=== PATIENT | female | born 1925 | race Caucasian/White ===

== ENCOUNTER 2016-09-14 13:00 | Inpatient (IN) | payer MEDICARE, OTHER ==
[~2016-09-14] VITALS: Ht 165.1 cm; Wt 66.3 kg
[2016-09-14] VITALS (7 sets, daily range): BP systolic 112–151; BP diastolic 51–66; PULSE 60–150; RESP 11–18; O2SAT 92–99
[~2016-09-14 13:00] MED LIST: Aspirin PO; Hydrocodone/Acetaminophen PO; METO50TA7 PO; MULT-56 PO
--- NOTE | 2016-09-14 13:09 | ED.REPORT ---
HPI-Trauma Minor / Fall Date of Service Sep 14, 2016 ED Provider: Dr. Ayaz Luke Patient is a 89-year-old female with a history of HTN and arthritis who reports to the ED via EMS after a ground level fall on her hip. Via EMS, the patient tripped over a loose rug which caused her to fall. She is responsive and answers questions. Patient says she, "just feels completely lousy." She was not experiencing any extraneous symptoms prior to her fall. Nursing Notes Stated Complaint: GROUND LEVEL FALL Nursing Notes Reviewed: Yes Allergies: Coded Allergies: No Known Allergies (Unverified Allergy, Unknown, 10/16/14) Scheduled ([Aspirin]) 325 MG TABLET 325 MG PO DAILY Metoprolol Succinate ER (Toprol XL) 50 Mg Tablet.er 50 MG PO DAILY Multivitamin (Daily Vitamin) 1 Each Tablet 1 EACH PO DAILY Scheduled PRN ([Hydrocodone/Acetaminophen]) 1 TAB TABLET 1-2 TAB PO Q4H PRN PRN For Pain General Time Seen by MD: 13:09 Chief Complaint Fall Hx Obtained From: Patient, EMS Arrived By: Ambulance Onset Occurred: Just prior to arrival Symptom Duration: Since onset Caused by: Fall on ground Context: Occurred at: Home injury Location: Hip right Severity: Current: Moderate Severity: Maximum: Moderate Similar Sx Previous: No Past Medical History Past Medical History 3 yrs ago tripped and broke arm Arthritis Reports: Hypertension Past Surgical History Reports: Cholecystectomy Smoking History Never Smoker Social History Alcohol Use: 1-3 per week Review of Systems Musculoskeletal: Reports: Joint pain (hip pain) Complete sys rev & neg: except as marked. Physical Exam Initial Vital Signs Vital Signs (First) Date Time Temp Pulse Resp B/P Pulse Ox O2 Delivery O2 Flow Rate FiO2 09/14/16 13:14 36.5 79 15 127/51 92 Room Air Initial VS: Reviewed ENT: Mucous membranes moist, Conjunctiva normal, No scleral icterus Respiratory: Breath sounds normal, Clear to auscultation, No respiratory distress Cardiovascular: Regular rate & rhythm, Heart sounds normal, Intact distal pulses Abdomen / GI: Soft, Non-tender, No guarding, No rebound, No distention Skin: Warm, Dry, No cyanosis Neurologic: Alert, Oriented, Nonfocal Psychiatric: Mood/affect normal, Behavior normal, Normal thought content General/Constitutional: Awake, Alert, Well appearing, Cooperative, Not toxic appearing Neck: Atraumatic, Supple, No swelling, Non-tender Head / Eyes: Atraumatic, Normocephalic, PERRL, EOMI no signs of head injury Right Hip: Positive: Tenderness present... (Moderate) right hip tenderness to palpation Neurologic: Oriented X3, Speech NL, No motor deficits, No sensory deficits Interpretation & Diagnostics Lab Results Interpretation Result Diagram: 09/14/16 1455 Test 09/14/16 14:55 White Blood Count 17.5th/mm3 (3.8-10.1) Red Blood Count 4.70mil/mm3 (3.90-5.20) Hemoglobin 14.7g/dL (12.0-15.6) Hematocrit 43.8% (35.0-46.0) Mean Corpuscular Volume 93.2fL (81-100) Mean Corpuscular Hemoglobin 31.3pg (27.0-35.0) Mean Corpuscular Hemoglobin Concent 33.6% (32.0-37.0) Red Cell Distribution Width 12.9% (12.3-15.4) Platelet Count 225bil/L (150-400) Neutrophils (%) (Auto) 87.1% (40-74) Lymphocytes (%) (Auto) 7.1% (14-46) Monocytes (%) (Auto) 5.3% (4-12) Eosinophils (%) (Auto) 0.1% (0-5) Basophils (%) (Auto) 0.2% (0-3) Hold Matthew Top Tube Received (Received) ECG Interpretation Time: 13:28 Interpreted by: ED physician Rhythm / Conduction: Atrial fibrillation Time: 15:10 Interpreted by: ED physician Rhythm / Conduction: Atrial fibrillation (with RVR) X-Ray Chest Interpretation Chest Xray Interpretation: IMPRESSION: Mild increased pulmonary vascularity secondary to edema. Dictated by: Conchis Julian M.D. on 09/14/2016 at 14:41 Approved by: Conchis Julian M.D. on 09/14/2016 at 14:41 View: Portable Interpretation / Wet Read by: Interpret - Radiologist X-Ray Interpretation Xray Interpretation: HIP PELVIS X-RAY IMPRESSION: Right intertrochanteric fracture with fracture extension to the femoral shaft. Dictated by: Conchis Julian M.D. on 09/14/2016 at 14:45 Approved by: Conchis Julian M.D. on 09/14/2016 at 14:45 X-Ray Ordered: Hip right Interpretation / Wet Read by: Interpret - Radiologist CT Head Interpretation IMPRESSION: No acute intracranial abnormality. Dictated by: Kary Portillo M.D. on 09/14/2016 at 14:58 Approved by: Kary Portillo M.D. on 09/14/2016 at 14:58 Study: Head CT no contrast Interpretation / Wet Read by: Interpret - Radiologist Re-Eval/Medical Decision Med Decision/Clinical Course Right hip fracture, additionally patient's sons relative for A. fib, head CT negative. I am currently awaiting lab evaluation and will plan on admitting the patient for surgery via orthopedics. Re-Evaluation/Progress : Time of Eval: 14:38 Re-Evaluation/Progress Note: Pt rechecked and informed of diagnosis of fractured right hip. Informed pt of need for admission. Pt understands and agrees with plan for admission. All questions addressed. Counseled Regarding: Diagnosis, Lab results, Need for admission Discharge & Departure Shift Change Sign-Out Patient Care Transferred: Yes Discussed Complaint(s): Yes Laboratory Evaluation: Ordered, not yet done Imaging Studies: Imaging discussed Impression: Primary Impression: Hip fracture Disposition: ADMITTED TO HOSPITAL Discharge Condition All VS Reviewed: Yes Condition: Stable Referrals: Jaimie Martines MD (PCP) Care Transferred to: Dr. Yoan Musa Care Transferred at: 15:07 Joe Attestation Portion of this note were transcribed by Eloy Wright. I, Dr. Luke, personally performed the history, physical exam, and medical decision-making: I reviewed and confirmed the accuracy for the information in the transcribed note. Signed by: joe Whelan, 09/14/16 [id number] copies to: Jaimie Martines MD, Timothy S DO Sep 14, 2016 13:09 ELOY WRIGHT Sep 14, 2016 13:22
[2016-09-14] MEDS ORDERED: HYDROmorphone 0.5 mg/0.5 mL iSecure Syringe IVPUSH PRN (13:15)
[2016-09-14] MEDS ORDERED: Ondansetron 2 mg/mL 2 mL Inj IV PRN (13:15)
--- NOTE | 2016-09-14 14:43 | DRSVH ---
PROCEDURE: X-RAY CHEST ONE VIEW, PORTABLE ([id number]) INDICATIONS: fall, right hip pain TECHNIQUE: One view of the chest was acquired. COMPARISON: [facility], CR, XR CHEST 2VW, 06/26/2015, 13:46. FINDINGS: Surgical changes and devices: Pacemaker and cholecystectomy clips. Lungs and pleura: No pleural effusions or pneumothorax. Mild increased pulmonary vascularity. Mediastinum: Mediastinal contours appear normal. Heart size is normal. Bones and chest wall: No suspicious bony lesions. Overlying soft tissues appear unremarkable. IMPRESSION: Mild increased pulmonary vascularity secondary to edema. Dictated by: Conchis Julian M.D. on 09/14/2016 at 14:41 Approved by: Conchis Julian M.D. on 09/14/2016 at 14:41
--- NOTE | 2016-09-14 14:46 | DRSVH ---
PROCEDURE: X-RAY PELVIS W/LAT HIP (RT) ([id number]) INDICATIONS: fall, right hip pain TECHNIQUE: AP pelvis with lateral view(s) of the right hip(s). COMPARISON: None. FINDINGS: Bones: Right intertrochanteric fracture with slight impaction. There is also appearance of fracture extension into the proximal femoral shaft. Pelvic ring appears intact. No suspicious bony lesions. Soft tissues: The visualized bowel gas pattern is normal. No suspicious soft tissue calcifications. IMPRESSION: Right intertrochanteric fracture with fracture extension to the femoral shaft. Dictated by: Conchis Julian M.D. on 09/14/2016 at 14:45 Approved by: Conchis Julian M.D. on 09/14/2016 at 14:45
--- NOTE | 2016-09-14 15:00 | DRSVH ---
PROCEDURE: CT BRAIN WITHOUT CONTRAST ([id number]) INDICATIONS: fall on xarelto TECHNIQUE: Noncontrast 4.5 mm thick angled axial sections acquired from the foramen magnum to the vertex, with c oronal reformats. COMPARISON: None. FINDINGS: Image quality: Excellent. CSF spaces: Basal cisterns are patent. No extra-axial fluid collections. The ventricles are symmet leo in size and shape. Brain: No intracranial bleeds or masses. There is cerebral volume loss for age, with resultant vent ricular and sulcal prominence. There are periventricular and deep white matter chronic small vessel ischemic changes. There is intracranial internal carotid artery atherosclerosis. Skull and face: Calvarium and visualized facial bones appear intact, without suspicious lesions. Sinuses: Visualized sinuses and mastoids are clear. IMPRESSION: No acute intracranial abnormality. Dictated by: Kary Portillo M.D. on 09/14/2016 at 14:58 Approved by: Kary Portillo M.D. on 09/14/2016 at 14:58
[2016-09-14] MEDS ORDERED: MeTOProlol 1 mg/mL 5 mL Inj IVPUSH SCH (15:10)
[2016-09-14] MEDS ORDERED: 0.9% Sodium Chloride 500 ML IV ONE (15:10)
[2016-09-14 15:17] LABS: BASOPHILS % (AUTO) 0.2 % (0-3); EOSINOPHILS % (AUTO) 0.1 % (0-5); MONOCYTES % (AUTO) 5.3 % (4-12); Mean Corpuscular Hemoglobin 31.3 pg (27.0-35.0); Mean Corpuscular Volume 93.2 fL (81-100); NEUTROPHILS % (AUTO) 87.1 % (40-74); Platelet Count 225 bil/L (150-400)
[2016-09-14 15:30] LABS: Magnesium 1.9 mg/dL (1.6-2.6)
[2016-09-14] MEDS ORDERED: FLUN25SP NASAL (16:03)
[2016-09-14] MEDS ORDERED: RIVA20TA PO (16:03)
[2016-09-14] MEDS ORDERED: METO200T32 PO (16:03)
[2016-09-14 16:22] LABS: INR 1.04 ratio
[2016-09-14] MEDS ORDERED: Alum-Mag Hydrox-Simeth 30 mL Suspension PO PRN (16:25)
[2016-09-14] MEDS ORDERED: Ondansetron 2 mg/mL 2 mL Inj IVPUSH PRN (16:25)
[2016-09-14] MEDS ORDERED: Fluticasone 0.05% 15 Spray/2 Gm 16 Gm Nasal Spray NASAL PRN (16:40)
--- NOTE | 2016-09-14 16:44 | PCM.HPMED ---
Subjective Date of Service Sep 14, 2016 Primary Provider: Admitting Physician: Primary Care Physician: Jaimie Martines MD Attending Physician: Chief Complaint: fell and broke hip HISTORY was OBTAINED FROM PATIENT-poor historian / [facility] NOTES History of present illness 89-year-old female, BIB EMS,atrial fibrillation- Xarelto, non-compliance, EtOH, recurrent fall, presented after ground level fall and noted to have right hip fracture. She was responsive verbally to ER doc but in the gao she was slow to respond/difficult to redirect, proceeded to have projectile vomiting of old food and bile after RN attempting administering pill, then became more alert, able to keep attention, circumferential and had forgotten that she had a hip fracture or the fall. Per EMS, she tripped over a rug. She previously fell and broke her arm. She indicates no pain of legs.She indicated to ER staff that she felt "lousy" no change in diet. EtOH is noted to be less per ER note than prior notes. She indicates that she does not take much medications. In the ER, patient briefly had RVR 150, self resolved prior to administration of metoprolol. In the gao, banana bag was started, but w/ new crackles, it was stopped, thiamine IV instead, and lasix 30 mg total administered w.normal electrolyes Review of Systems - FAMILY HX - prior to vomitting she was poorly responding to questions, redirectable by yelling only. Medications xarelto Metoprolol Succinate ER (Toprol XL) 50 Mg Tablet.er 50 MG PO DAILY ([Hydrocodone/Acetaminophen]) 1 TAB TABLET 1-2 TAB PO Q4H PRN PRN For Pain SOCIAL HX EtOH nightly, never smoker PAST MEDICAL HISTORY: 1. Occasional palpitations 2. GERD. 3. Transient episode of vertigo with negative workup and no sequelae. tripped and broke arm 1. LORETA/BSO in stages. 2. Salas in the left lower extremity following fracture. 3. Appendectomy. 4. Cholecystectomy. 5. Some neck surgery that was carried out with a very brief outpatient procedure. Neither the patient nor her family members can recall anything further about this. Hypertension Osteoarthritis Cataracts GERD Cholecystectomy Allergies Coded Allergies: No Known Allergies (Unverified Allergy, Unknown, 10/16/14) PMH Social History Hx Alcohol Use: Yes (one drink a night) Hx Substance Use: No Hx Tobacco Use: No Smoking Status: Never Smoker Exam Vital Signs Vital Sign - Last Date Time Temp Pulse Resp B/P Pulse Ox O2 Delivery O2 Flow Rate FiO2 09/14/16 15:00 150 11 112/58 96 Room Air 09/14/16 13:14 36.5 Lab and Diagnostics Labs Exam on admission poor to verbally respond, redirectable with yelling, follows commands, no dysarthria, NAD A and O x 3 mood affect WNL NC/AT no icterus no injected eyes EOMI PERRL /no pharyngeal lesions/ no oral lesions / hearing intact Supple neck crackles bilateral equal chest rise / no accessory muscle use / speaks in full sentences / no rrw irreg irreg [id number], S2, S3 / no mrg / 2+ radial pulses Soft nt nd + BS no hepatosplenomegaly No edema no cyanosis no ecchymosis of lower extremities No rash / no jaundice GARCIA parsons clear urine EKG 81 afib, no ST Changes echo 2014 Interpretation Summary The left ventricle is normal in size. The ejection fraction is estimated to be 60-65%. The right ventricle is normal in size and function. The left atrium is mildly dilated. Right atrial size is normal. There is mild mitral regurgitation. Procedure: A two-dimensional transthoracic echocardiogram with color flow and Doppler was performed. The study quality was technically adequate. There is no prior echocardiogram noted for this patient. The patient was in normal sinus rhythm during the exam. Left Ventricle: The left ventricle is normal in size. Proximal septal thickening is noted. Echo findings are not consistent with left ventricular outflow obstruction. INR 1.01 PROCEDURE: CT BRAIN WITHOUT CONTRAST ([id number]) INDICATIONS: fall on xarelto TECHNIQUE: Noncontrast 4.5 mm thick angled axial sections acquired from the foramen magnum to the vertex, with coronal reformats. COMPARISON: None. FINDINGS: Image quality: Excellent. CSF spaces: Basal cisterns are patent. No extra-axial fluid collections. The ventricles are symmetric in size and shape. Brain: No intracranial bleeds or masses. There is cerebral volume loss for age , with resultant ventricular and sulcal prominence. There are periventricular and deep white matter chronic small vessel ischemic changes. There is intracranial internal carotid artery atherosclerosis. Skull and face: Calvarium and visualized facial bones appear intact, without suspicious lesions. Sinuses: Visualized sinuses and mastoids are clear. IMPRESSION: No acute intracranial abnormality. CXRPROCEDURE: X-RAY CHEST ONE VIEW, PORTABLE ([id number]) INDICATIONS: fall, right hip pain TECHNIQUE: One view of the chest was acquired. COMPARISON: [facility], CR, XR CHEST 2VW, 06/26/2015, 13:46. FINDINGS: Surgical changes and devices: Pacemaker and cholecystectomy clips. Lungs and pleura: No pleural effusions or pneumothorax. Mild increased pulmonary vascularity. Mediastinum: Mediastinal contours appear normal. Heart size is normal. Bones and chest wall: No suspicious bony lesions. Overlying soft tissues appear unremarkable. IMPRESSION: Mild increased pulmonary vascularity secondary to edema. PROCEDURE: X-RAY PELVIS W/LAT HIP (RT) ([id number]) INDICATIONS: fall, right hip pain TECHNIQUE: AP pelvis with lateral view(s) of the right hip(s). COMPARISON: None. FINDINGS: Bones: Right intertrochanteric fracture with slight impaction. There is also appearance of fracture extension into the proximal femoral shaft. Pelvic ring appears intact. No suspicious bony lesions. Soft tissues: The visualized bowel gas pattern is normal. No suspicious soft tissue calcifications. IMPRESSION: Right intertrochanteric fracture with fracture extension to the femoral shaft. Result Diagram: 09/14/16145409/14/161454 Assessment & Plan Active issues and reason for admission hip fracture from recurrent GLF, AMS in the gao but not in ER, negative repeat head CT, likely delirium and EtOH component, inaccurate/poor historian Hip fracture --Dr Bain afib transient RVR in ER --caution w/ fluid overload, lasix now, monitor electrolytes --echo pending questionable xaralto use --patient indicates she does not take "much" pills --ffp for am ordered intraop Echo repeat due to fluid overload, dc banana bag Delirium resolving, known EtOH use --tsh / NH3 pending / continue thiamine Gastroenteritis - vomiting w/ dysphagia --supportive care, swallow evaluation, tolerating crushed pills in apple sauce --PPI Chronic issues known prior to admission, present on admission afib monitor electrolyes and i/o EtOh CIWA Diet dysphagia DVT prophylaxis lovenox Code full Disposition inpt Assessment and plan were discussed with patient Александр Redding MD Sep 14, 2016 16:44 Lab and Diagnostics Result Diagram: 09/14/16 0811 09/14/16 1455 Алескандр Redding MD Sep 14, 2016 16:44 Disposition OBS status Greater than 50% of this visit, with total time of 51 71 minutes, was spent on counselling and coordinating care. Assessment and plan were discussed with patient family. Allergies Coded Allergies: No Known Allergies (Unverified Allergy, Unknown, 10/16/14) PMH Social History Hx Alcohol Use: Yes (one drink a night) Hx Substance Use: No Hx Tobacco Use: No Smoking Status: Never Smoker Exam Vital Signs Vital Sign - Last Date Time Temp Pulse Resp B/P Pulse Ox O2 Delivery O2 Flow Rate FiO2 09/14/16 15:00 150 11 112/58 96 Room Air 09/14/16 13:14 36.5 Lab and Diagnostics Result Diagram: 09/14/16 1455 09/14/16 1455 Александр Redding MD Sep 14, 2016 16:44
[2016-09-14 16:49] LABS: APPEARANCE,URINE CLEAR (CLEAR,HAZY); COLOR,URINE YELLOW (YELLOW); OCCULT BLOOD,URINE TRACE (NEGATIVE); UROBILINOGEN,URINE NORMAL (NORMAL)
[2016-09-14] MEDS ORDERED: Glucose 40% Oral Gel 15 Gm Tube PO PRN (16:50)
[2016-09-14] MEDS ORDERED: Thiamine Inj 100 MG, Folic Acid Inj 1 MG, Magnesium Sulfate 50% Inj 2 GM, Multivitamins... IV ONE ×5 (16:50)
[2016-09-14] MEDS ORDERED: MeTOProlol XL 50 mg ER24 Tablet PO SCH (17:00)
--- NOTE | 2016-09-14 17:29 | DRSVH ---
PROCEDURE: X-RAY RIGHT FEMUR, TWO VIEWS ([id number]) INDICATIONS: hip fracture TECHNIQUE: 2 views of the femur were acquired. COMPARISON: [facility], CR, XR PELVIS W LATERAL HIP RT, 09/14/2016, 14:11. FINDINGS: Bones: Right intertrochanteric hip fracture with extension to the proximal femur is again noted witho ut significant change compared to prior exam. Visualized portions of the remainder of the femur are u nremarkable. Partially visualized tibial fixation renate is noted. Soft tissues: No suspicious soft tissue calcifications or masses. IMPRESSION: Right hip fracture as above without interval change. No other areas of fracture identifie d. Dictated by: Conchis Julian M.D. on 09/14/2016 at 17:28 Approved by: Conchis Julian M.D. on 09/14/2016 at 17:28
[2016-09-14] MEDS: Insulin LISPRO 300 Unit/3 mL Inj SUBQ SCH ×2 (17:30→22:00)
--- NOTE | 2016-09-14 19:17 | NUR ---
Admit note- Received patient via stretcher to 1017 accompanied by son. Patient denies pain, except when moved onto bed. Oriented to room, call light,tele,etc.
[2016-09-14] MEDS ORDERED: Furosemide 10 mg/mL 2 mL Inj IVPUSH ONE (21:30)
[2016-09-14] MEDS ORDERED: MetoCLOpramide 5 mg/mL 2 mL Inj IVPUSH PRN (22:05)
--- NOTE | 2016-09-14 22:57 | NUR ---
Nausea/ Vomiting Pt. had an episode of vomiting. paged. New order placed for reglan IV, as zofran IV was ineffective. Reglan IV was effective for nausea. Care continues.
[2016-09-14 23:13] LABS: TROPONIN T 0.01 ug/L (0.0-0.011)
--- NOTE | 2016-09-14 23:19 | NUR ---
Off floor to CT Pt. transported off floor at [address] scan[address] Pt. transported by [facility] floor staff. [facility] floor staff stayed with pt. during entire procedure, and transported pt. back into room. Pt. was on telemetry during transport. Pt. back on floor at 2317. Will continue to monitor.
--- NOTE | 2016-09-14 23:22 | CONS ---
[address] [address] CONSULTATION REPORT PATIENT: ELVIRA ALVAREZ : 1925 MR#: [id number] ADMIT: 09/14/2016 JOB ID: [id number] DATE OF SERVICE: 09/14/2016 ORTHOPEDIC CONSULTATION - [id number] CHIEF COMPLAINT: This is an 89-year-old female who tripped on a rug today at home, sustaining a displaced right intertrochanteric femoral fracture. HISTORY: According to the emergency department note, patient was responsive when she came to the emergency department. She has history of hypertension and atrial fibrillation. She evidently is also on Xarelto. We are not sure if she does take this on a regular basis. A CT scan was performed of the head with no acute infiltrates. Upon checking the patient tonight, she seems to be confused and lethargic. She had a small amount of IV pain medication. Hospitalist has indicated that repeat CT scan is going to be performed to make sure she does not have an intracerebral bleed. The patient also has had some nausea and vomiting. PAST MEDICAL HISTORY: Positive for atrial fibrillation, gastric reflux, history of TIA with vertigo. PRIOR SURGERIES: LORETA-BSO, prior fracture left lower extremity, appendectomy, cholecystectomy, some type of cervical procedure. REVIEW OF SYSTEMS: Unable to obtain since patient is lethargic and difficult to respond appropriately. She has had a cardiac echo in the past; from 2013 did show that she has mild mitral regurgitation and cardiac ejection fraction in 2014 was 60% to 65%. SOCIAL HISTORY: The patient does drink alcohol every few days according to the son. He states he does not think she had anything to drink except for a small alcoholic beverage last night. PHYSICAL EXAMINATION: Patient is very lethargic and not responding appropriately to questions. She is sitting in bed with her legs flexed. Skin is intact over the right hip. Pulses are intact. Motor and sensory testing is grossly intact. Vital signs: Temperature 36.5, respiratory rate of 18, pulse of 63, blood pressure 120/60. Calves are soft. LABORATORY TESTING: White count 17,500, hemoglobin 14.7, hematocrit of 43.8; 87.1% neutrophils. Sodium 141, potassium 4.7, chloride 106, CO2 23, BUN 15, creatinine 0.67, random glucose 165. Calcium 8.9, magnesium 1.9, total bilirubin 0.4, AST 19, ALT 11, alkaline phosphatase 63, total protein 6.5, albumin 3.6. PT 11.1, INR 1.04, PTT is 25.9. Urinalysis is clear, specific gravity 1.030, 0-2 red cells, 0-5 white blood cells. ALLERGIES: No known allergies. X-RAYS: Show that she has a right intertrochanteric femoral fracture. Original CT scan of the head did not show any acute intracranial pathology. Chest x-ray showed some increased pulmonary vascularity consistent with edema. IMPRESSION: Right intertrochanteric femoral fracture. PLAN The patient is lethargic. Need to rule out if she potentially has an intracranial bleed. CT scan of the head will be repeated. The patient will require open reduction and internal fixation of the right intertrochanteric femoral fracture. Her son has power of deputy prosecuting attorney, that is Brent Desai. I have explained the risks for bleeding, infection, pain and stiffness, possibility for damage to surrounding neurovascular structures, the potential for delayed union, nonunion, malunion, and hardware failure. Son is also aware there is potential for deep venous thrombosis, pulmonary emboli stroke and possible fatal cardiopulmonary event. He has indicated that the patient evidently has a DO NOT RESUSCITATE request. I explained to him that DNR request is not the same as do not treat for hip fracture. I have filled out a surgical consent form and the son has been given informed consent as power of deputy prosecuting attorney. He will be here tomorrow and certainly can sign our surgical consent. If she is stabilized from a medical standpoint, will plan for surgical intervention for the hip fracture tomorrow. CC: [facility]ED[facility]-Orthopedics CC: Hoda Morse
[2016-09-15] VITALS (15 sets, daily range): BP systolic 95–155; BP diastolic 48–90; PULSE 56–65; RESP 12–20; O2SAT 96–100
[2016-09-15] MEDS ORDERED: Furosemide 10 mg/mL 2 mL Inj IVPUSH ONE (02:10)
--- NOTE | 2016-09-15 03:07 | NUR ---
Confusion Pt. has been confused to time and place, since beginning of shift. aware. During hourly rounding around 0230, pt.'s confusion seems to be improving. Will continue to monitor.
[2016-09-15] MEDS ORDERED: Acetaminophen IV 1,000 MG in IV Premix 1 EACH IV PRN (03:10)
[2016-09-15] MEDS ORDERED: 0.9% Sodium Chloride 100 ML ONE (03:30)
[2016-09-15 06:56] LABS: Mean Corpuscular Hemoglobin 30.4 pg (27.0-35.0); Mean Corpuscular Volume 95.8 fL (81-100)
--- NOTE | 2016-09-15 07:34 | PCM.PNMED ---
Subjective Date of Service Sep 15, 2016 Subjective pt seen this AM, a/ox1, minimal pain now, worse witrh mvmt, possible orif today. denies n/v/f Exam Vital Signs Vital Sign - Last Date Time Temp Pulse Resp B/P Pulse Ox O2 Delivery O2 Flow Rate FiO2 09/15/16 06:02 58 09/15/16 03:56 36.5 18 136/73 Nasal Cannula 2.00 95 09/14/16 17:40 99 Intake and Output 09/14/16 09/14/16 09/15/16 Cumulative From/Thru 15:00 23:00 07:00 09/14/16 13:14 - 09/15/16 06:34 Intake Total 110 ml 110 ml Output Total 1200 ml 1200 ml Balance -1090 ml -1090 ml Intake Oral 0 ml 0 ml IV Total 110 ml 110 ml Output Urine Total 800 ml 800 ml Emesis 400 ml 400 ml Exam Exam on admission poor to verbally respond, redirectable with yelling, follows commands, no dysarthria, NAD A and O x 3 mood affect WNL NC/AT no icterus no injected eyes EOMI PERRL /no pharyngeal lesions/ no oral lesions / hearing intact Supple neck crackles bilateral equal chest rise / no accessory muscle use / speaks in full sentences / no rrw irreg irreg F0pzvye, S2, S3 / no mrg / 2+ radial pulses Soft nt nd + BS no hepatosplenomegaly No edema no cyanosis no ecchymosis of lower extremities No rash / no jaundice GARCIA parsons clear urine IVs and Medications Medications Reviewed: Medications were reviewed in detail Lab and Diagnostics Result Diagram: 09/15/16 0614 09/14/16 2216 Assessment & Plan Active issues and reason for admission, acute delirium, 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, AMS in the gao but not in ER, negative repeat head CT, likely delirium and EtOH component, inaccurate/poor historian Hip fracture --Dr Odell dalton transient RVR in ER --caution w/ fluid overload, lasix now, monitor electrolytes --echo pending questionable xaralto use --patient indicates she does not take "much" pills --ffp for am ordered intraop Echo repeat due to fluid overload, dc banana bag Delirium resolving, known EtOH use --tsh / NH3 pending / continue thiamine Gastroenteritis - vomiting w/ dysphagia --supportive care, swallow evaluation, tolerating crushed pills in apple sauce --PPI Chronic issues known prior to admission, present on admission afib monitor electrolyes and i/o EtOh CIWA Diet dysphagia DVT prophylaxis lovenox Code DNR Disposition inpt Assessment and plan were discussed with patient Pain Evaluation: Adequate Pain Control Resuscitation Status: DNR/DNI:Do Not Resuscitate/Intubate Time spent 30 minutes with eval and mgmt Ambrocio Lemos DO Sep 15, 2016 07:34
[2016-09-15 07:37] LABS: Magnesium 1.9 mg/dL (1.6-2.6)
[2016-09-15] MEDS: Insulin LISPRO 300 Unit/3 mL Inj SUBQ SCH ×4 (08:50→22:00)
--- NOTE | 2016-09-15 09:01 | NUR ---
[employer] consult received. Pt is NPO for surgery today. [employer] will follow and evaluate s/p surgery. Discussed with RN.
--- NOTE | 2016-09-15 09:28 | DRSVH ---
PROCEDURE: CT BRAIN WITHOUT CONTRAST ([id number]) INDICATIONS: Acute altered mental status. TECHNIQUE: Noncontrast 4.5 mm thick angled axial sections acquired from the foramen magnum to the vertex, with c oronal reformats. COMPARISON: None. FINDINGS: Image quality: Excellent. CSF spaces: Basal cisterns are patent. No extra-axial fluid collections. The ventricles are symmet leo in size and shape. Brain: No intracranial bleeds or masses. There is cerebral volume loss for age, with resultant vent ricular and sulcal prominence. There are periventricular and deep white matter chronic small vessel ischemic changes. There is intracranial internal carotid artery atherosclerosis. Skull and face: Calvarium and visualized facial bones appear intact, without suspicious lesions. Sinuses: Visualized sinuses and mastoids are clear. IMPRESSION: No acute intracranial disease process. Dictated by: Ana Pruett MD, PhD on 09/15/2016 at 9:26 Approved by: Ana Pruett MD, PhD on 09/15/2016 at 9:26
--- NOTE | 2016-09-15 13:22 | PCM.HPANE ---
Patient Data Surgeon Admitting Provider:Александр Redding MD Attending Provider:Александр Redding MD Primary Care Physician:Jaimie Martines MD Other Provider: Reason for Visit Hip Fracture,Afib HIP FRACTURE,AFIB Ht/WT & BMI Height (Feet): 5 Height (Inches): 5.00 Weight (Kilograms): 66.500 Body Mass Index 24.43 Allergies Coded Allergies: No Known Allergies (Unverified Allergy, Unknown, 10/16/14) Diabetes History Hx Diabetes?: No Current Bedside Blood Glucose: 157 MRSA MRSA: No Medications Reported Medications Rivaroxaban (Xarelto)20 Mg [id number] Mg PO QPM 09/14/16 Metoprolol Succinate ER 200 Mg Tab.er.47m237 Mg PO QPM 09/14/16 Flunisolide 25 Ml Spray1-2 Sprays NASAL DAILY PRN For Congestion 09/14/16 Discontinued Reported Medications Multivitamin (Daily Vitamin)1 Each Tablet1 Each PO DAILY 10/16/14 Discontinued Scripts [Aspirin] 325 MG TABLET No Conflict [id number] Mg PO DAILY #30 TABLET Ref 1 Prov:Ambrocio Park MD 10/18/14 Metoprolol Succinate ER (Toprol XL)50 Mg Tablet.er50 Mg PO DAILY #30 Ref 1 Prov:Ambrocio Park MD 10/18/14 [Hydrocodone/Acetaminophen] (Loraine 5-325)1 TAB TABLET No Conflict Check1-2 Tab PO Q4H PRN For Pain #14 TABLET Ref 0 Prov:Ambrocio Park MD 10/18/14 History History of ENT Problems?: Yes HEENT History: Positive for:: Cataracts (both eyes) Sinus Problem (deviated septum) Hx of Heart Problems?: Yes Cardiovascular History: Positive for:: Hypertension Denies:: Congestive Heart Failure Other Cardiac History: Afib with occ RVR. takes metoprolol for this. On xarelto. Non for at least 48 hours per sone Hx of Respiratory Problem?: No Respiratory History: Denies:: Tuberculosis Hx Neurologic Problems?: No Other Neurological Pertinent: some dementia. son says her LOC is normal and fesity at this time. He has DPOA and will sign Hx of GI Problems?: Yes Gastrointestinal History: Positive for:: Gastroesphageal Reflux Heartburn Hx of Problems?: No Female Hx: Denies:: Currently Hx Musculoskeletal Problems?: Yes Musculoskeletal History: Positive for:: Musculoskeletal Trauma (broken right leg from fall) Hx of Psycho/Social Problems?: No Hx Surgeries?: Yes Hx Any Other Health Problems?: Yes Other History: Positive for:: Hospitalization (gallbladder removed 11/08) History Blood Transfusions: Denies:: Blood Transfuse Reaction Blood Transfusions Hx Diabetes: NoBedside Blood Glucose: 157 Hx Alcohol Use: Yes (one drink a night)Hx Substance Use: No Smoking Status: Never Smoker Have You Smoked inLast 12 mo: No Stop/Bang Treated for Sleep Apnea?: No Do You Have a CPAP Machine?: No S-Snoring: Do You Snore Loudly: No T-Tired: feel tired, fatigued: No O-Obsered: Observed not breath: No P-Blood Pressure: treated: Yes B- Body Mass Index > 35 kg/m2: No A- Age over 50: Yes N- Neck Large Circumference: No G- Gender Male: No MG Total Score: 1 MG Risk Assessment: Low Risk, <3 Yes Risk Assessment Category Category 1A: Patient has history of documented sleep apnea, and HAS NOT received any narcotic, sedative or anesthesia administration during this stay. Category 1B: Patient has history of documented sleep apnea, and HAS received any narcotic , sedative or anesthesia administration during this stay Category 2: Patient has SUSPECTED Obstructive Sleep Apnea, and HAS received any narcotic , sedative or anesthesia administration during this stay. Category 3: Patient has SUSPECTED Obstructive Sleep Apnea and HAS NOT received narcotic, sedative or anesthesia administration during this stay. Category 4: Outpatient in Procedural Areas with known sleep apnea or who screen positive for High Risk via the STOP/BANG questionnaire. Exam Exam Vital Signs Vital Signs Date Time Temp Pulse Resp B/P Pulse Ox O2 Delivery O2 Flow Rate FiO2 09/15/16 10:42 36.7 62 18 146/68 98 Nasal Cannula 2.00 09/15/16 10:36 Supplement Oxygen 09/15/16 08:55 63 138/66 Nasal Cannula 09/15/16 06:02 58 General Appearance: Alert, Oriented X3, Cooperative, No Acute Distress HEENT/AIRWAY: MP 2 Lungs: Clear to Auscultation, Normal Air Movement Heart: Exam Unremarkable, Regular Rate/Rhythm, No Murmurs/Rubs/Gallops Meds/Labs/Diagnostics Admission Meds Current Medications Sodium Chloride (Normal Saline) 500 ml @ 0 mls/hr Q0M ONCE IV Last administered on 09/14/16 15:30; Start 09/14/16 at 15:10; Stop 09/14/16 at 16:49 ; Status DC Metoprolol Succinate (Toprol XL) 200 mg DAILY PO Last administered on 22:45; Start 09/14/16 at 17:00; Stop 09/15/16 at 02:30; Status DC Insulin Human Lispro WMHS SUBQ Last administered on 09/15/16 12:14; Start at 17:30 Thiamine HCl/ Folic Acid/ Magnesium Sulfate/ Multivitamins/ Sodium Chloride ( Vitamin B1 Inj/ Folic Acid Inj/ Magnesium Sulfate 50% Inj/MVI-12 Inj/Normal Saline) 1,015.2 ml @ 75 mls/hr ONCE ONCE IV Last administered on 09/14/16 19 :42; Start 09/14/16 at 16:50; Stop 09/15/16 at 06:22; Status DC Furosemide (Lasix Inj) 10 mg ONCE ONCE IVPUSH Last administered on 09/14/16 21:52; Start 09/14/16 at 21:30; Stop 09/14/16 at 21:31; Status DC Thiamine HCl (Vitamin B1) 100 mg ONCE ONCE PO Last administered on 09/14/16 22:43; Start 09/14/16 at 21:30; Stop 09/14/16 at 21:32; Status DC Furosemide 20 mg 20 mg ONCE ONCE IVPUSH Last administered on 09/15/16 02:33; Start 09/15/16 at 02:10; Stop 09/15/16 at 02:18; Status DC Sodium Chloride (Normal Saline) 100 ml @ STK-MED ONCE .ROUTE Last administered on 09/15/16 03:39; Start 09/15/16 at 03:30; Stop 09/15/16 at 03:31 ; Status DC Bedside Blood Glucose: 157 Labs Test 09/14/16 14:55 09/14/16 16:31 09/14/16 22:16 09/15/16 06:14 Neutrophils (%) (Auto) 87.1% (40-74) Lymphocytes (%) (Auto) 7.1% (14-46) Monocytes (%) (Auto) 5.3% (4-12) Eosinophils (%) (Auto) 0.1% (0-5) Basophils (%) (Auto) 0.2% (0-3) Prothrombin Time 11.1sec (8.1-12.5) Prothromb Time International Ratio 1.04ratio Activated Partial Thromboplast Time 25.9sec (22.8-33.0) Hemoglobin A1c 6.9% (4.8-5.6) Total Bilirubin 0.4mg/dL (0.0-1.2) Aspartate Amino Transf (AST/SGOT) 19U/L (0-50) Alanine Aminotransferase (ALT/SGPT) 11U/L (0-32) Alkaline Phosphatase 63U/L (25-165) Total Protein 6.5g/dL (6.4-8.4) Albumin 3.6g/dL (3.4-5.0) Hold Matthew Top Tube Received (Received) Urine Color Yellow (YELLOW) Urine Appearance Clear (CLEAR,HAZY) Urine pH 5.0 (5.0-8.0) Urine Specific [place] 1.030 (1.003-1.035) Urine Protein Negativemg/dL (NEG,TRACE) Urine Glucose (UA) Negativemg/dL (NEGATIVE) Urine Ketones Negativemg/dL (NEGATIVE) Urine Occult Blood Trace (NEGATIVE) Urine Nitrite Negative (NEGATIVE) Urine Bilirubin Negative (NEGATIVE) Urine Urobilinogen Normalmg/dL (NORMAL) Urine Leukocyte Esterase Negative (NEGATIVE) Urine RBC 0-2/hpf (0-2) Urine WBC 0-5/hpf (0-5) Urine Epithelial Cells None/hpf (NONE-MOD) Urine Crystals None seen (NONE SEEN) Urine Bacteria None/hpf (NONE-FEW) Urine Hyaline Casts None/lpf (NONE) Urine Granular Casts None seen (NONE SEEN) Urine Waxy Casts None seen (NONE SEEN) Urine Red Blood Cell Casts None seen (NONE SEEN) Urine White Blood Cell Casts None seen (NONE SEEN) Urine Mucus None seen (None Seen) Urine Trichomonas None seen (NONE SEEN) Urine Yeast None (NONE SEEN) Urinalysis Comment None Urine Culture Reflexed Not indicated Troponin T 0.010ug/L (0.0-0.011) Pro-B-Type Natriuretic Peptide 588.8pg/mL (0-738) White Blood Count 12.7th/mm3 (3.8-10.1) Red Blood Count 4.25mil/mm3 (3.90-5.20) Hemoglobin 12.9g/dL (12.0-15.6) Hematocrit 40.7% (35.0-46.0) Mean Corpuscular Volume 95.8fL (81-100) Mean Corpuscular Hemoglobin 30.4pg (27.0-35.0) Mean Corpuscular Hemoglobin Concent 31.7% (32.0-37.0) Red Cell Distribution Width 13.2% (12.3-15.4) Platelet Count 236bil/L (150-400) Sodium Level 147mEq/L (134-144) Potassium Level 4.8mEq/L (3.5-5.2) Chloride Level 107mEq/L (97-108) Carbon Dioxide Level 28mmol/L (18-29) Blood Urea Nitrogen 19mg/dL (8-27) Creatinine 0.94mg/dL (0.57-1.00) Estimat Glomerular Filtration Rate 80mL/min (>59) Glucose Level 203mg/dL (60-99) Calcium Level 9.0mg/dL (8.5-10.1) Phosphorus Level 5.0mg/dL (2.5-4.9) Magnesium Level 1.9mg/dL (1.6-2.6) Plan Impression Patient chart reviewed, patient interviewed and anesthestic plan with risks, benefits, and alternatives discussed, and informed consent obtained. ASA Physical Status: ASA3 Severe Disease Anesthetic Plan: SAB Bene/Risks/Altern/Consents: Yes HP Complete Prior to Induction: Yes Other ECHO normal left side. 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 Off xarelto at least 48 h INR normal Marco A Castillo MD Sep 15, 2016 13:22
--- NOTE | 2016-09-15 14:01 | NUR ---
Transfer to OR Report given to OR nurse. Patient was removed from tele, IV saline locked. SCD's in place, parsons catheter in place and draining. Patient taken up to OR hospital bed accompained by son.
--- NOTE | 2016-09-15 14:08 | DRSVH ---
[facility] [address] [place] [address] Echocardiogram Report Name: ELVIRA ALVAREZ RStudy Date: 09/15/2016 Height: 65 in Hospital Exam Location: [facility] Weight: 147 lb Gender: Female BSA: 1.7 m2 : 1925 Age: 89 yrs BP: 136/73 mmHg Reason For Study: FLUID OVERLOAD, HIP FRACTURE, A-FIB Ordering Physician: Performed By: Jermaine Villanueva Referring Physician: ROXY KENNEDY Interpretation Summary The ejection fraction is estimated to be 60-65%. The right ventricle is mild to moderately dilated. There is a pacemaker lead in the right ventricle. Right ventricular systolic function is borderline reduced. There is moderate tricuspid regurgitation. The right ventricular systolic pressure is estimated at 35 mmHg assuming a right atrial pressure of 3 mm Hg. Given an appropriate setting these findings could be suggestive of a PE. Procedure: A two-dimensional transthoracic echocardiogram with color flow and Doppler was performed. The study quality was technically adequate. Apical images are subopitmal. Comparison is made with the echocardiogram of 03/04/14. The patient was in normal sinus rhythm during the exam. The heart rate ranged between 56-67 bpm during the study. Left Ventricle: The left ventricle is normal in size, wall thickness, and systolic function without any focal wall motion abnormalities. The ejection fraction is estimated to be 60-65%. There are no obvious focal wall motion abnormalities noted but poor endocardial definition reduces the sensitivity for the detection of such. Right Ventricle: The right ventricle is mild to moderately dilated. There is a pacemaker lead in the right ventricle. Right ventricular systolic function is borderline reduced. Atria: The left atrial size is normal. The right atrium is moderately dilated. There is a catheter/pacemaker lead seen in the right atrium. The interatrial septum is intact with no evidence for an atrial septal defect. Aortic Valve: The aortic valve is trileaflet. The aortic valve opens well. There is mild aortic valve sclerosis. No aortic regurgitation is present. Tricuspid Valve: The tricuspid valve is not well visualized, but is grossly normal. There is moderate tricuspid regurgitation. The right ventricular systolic pressure is estimated at 35 mmHg assuming a right atrial pressure of 3 mm Hg. Compared to the prior echo exam, there has been an increase in TR severity. Pulmonic Valve: The pulmonic valve is not well visualized. There is trace pulmonic regurgitation. Great Vessels: The aortic root is normal size. The dimensions of the ascending aorta are normal. The pulmonary artery is normal size. The IVC is of normal diameter and collapses greater than 50% with a sniff. This suggests a low right atrial pressure of 3 mm Hg. Pericardium/ Pleura There is no pericardial effusion. There is no pleural effusion. MMode/2D Measurements & Calculations LVIDd: 3.6 cm RA long axis LVOT diam: 1.8 cm LVIDs: 2.4 cm LA A2 area: 14.3 cm AoV Opening FS: 34.4 % LA A4 area: 14.5 cm RA area EPSS: 0.45 cm LA length (vol) Ao root diam IVSd: 0.91 cm : 21.9 cm LVPWd: 0.93 cm LA vol: 33.2 ml RA vol asc Aorta Diam LA vol index : 78.4 ml RA Ao Arch Diam (Prox : 19.1 ml/m2 : 45.2 mm2 Trans): 2.6 cm LV calderon. diameter/BSA LV sys. diameter/BSA RVD1 (basal) RVD2 (mid): 3.4 cm (cm/m^2): 2.1 (cm/m^2): 1.4 TAPSE: 1.8 cm Doppler Measurements & Calculations Ao V2 max: 144.1 cm/secMV E max gerry MV E/A: 0.87 TR max gerry Ao max P.3 mmHg : 78.4 cm/sec Med Peak E' Gerry : 283.4 cm/sec Ao mean P.3 mmHg MV A max gerry TR max PG LVOT Max Gerry : 90.3 cm/sec E/E' med: 14.9 : 32.1 mmHg : 113.5 cm/sec Lat Peak E' Gerry PA V2 max : 75.1 cm/sec DAMI(I,D): 2.1 cm E/E' lat: 10.3 PA mean PG sev ratio: 0.84 E/e' average : 1.3 mmHg MV dec time: 0.28 sec Ao V2 mean LV V1 max PG PA V2 mean : 98.9 cm/sec : 54.3 cm/sec Ao V2 VTI LV V1 VTI: 25.8 cm DAMI(V,D): 2.0 cm2 DAMI indexed to BSA (cm^2/m^2): 1.2 Electronically signed by: Taran Crow on Reading Physician:09/15/2016 02:07 PM
[2016-09-15] MEDS ORDERED: Lactated Ringer's 1,000 ML IV ONE ×2 (14:20→15:12)
[2016-09-15] MEDS ORDERED: Bupivacaine-MPF 0.5% W/EPI 30 mL Inj INFILTRATE ONE (15:11)
[2016-09-15] MEDS ORDERED: Lactated Ringer's 1,000 ML IV SCH (15:57)
[2016-09-15] MEDS ORDERED: Lactated Ringer's 500 ML IV PRN (15:57)
[2016-09-15] MEDS ORDERED: HYDROmorphone 1 mg/mL Inj IVPUSH PRN ×2 (16:00→17:10)
[2016-09-15] MEDS ORDERED: hydrALAZINE 20 mg/mL Inj IVPUSH PRN (16:00)
[2016-09-15] MEDS ORDERED: Phenylephrine 10,000 mCg/mL Inj IVPUSH PRN (16:00)
[2016-09-15] MEDS ORDERED: MetoCLOpramide 5 mg/mL 2 mL Inj IVPUSH PRN (16:00)
[2016-09-15] MEDS ORDERED: Dexamethasone 4 mg/mL Inj IVPUSH PRN (16:00)
[2016-09-15] MEDS ORDERED: fentaNYL-PF 50 mCg/mL 2 mL Inj IVPUSH PRN (16:00)
[2016-09-15] MEDS ORDERED: Labetalol 5 mg/mL 4 mL Inj IV PRN (16:00)
[2016-09-15] MEDS ORDERED: Atropine 0.4 mg/mL Inj IVPUSH PRN (16:00)
[2016-09-15] MEDS ORDERED: Ondansetron 2 mg/mL 2 mL Inj IVPUSH PRN (16:00)
[2016-09-15] MEDS ORDERED: EPHEDrine Sulfate 50 mg/mL Inj IVPUSH PRN (16:00)
--- NOTE | 2016-09-15 16:14 | NUR ---
Social Work: Initial Assessment Data & Assessment: EMR reviewed. Patient is a 89 y/o female that admitted for Hip fracture and AFIB. Patient is scheduled for ORIF surgery today. SW met with patient and patient son/NOK/DPOA,Brent Gavin-[phone], at bedside to complete Initial Assessment. Patient does not have a re-admission score. Patient's PCP is Adelita Craven PA-C. Patient does not have any VA benefits or LTC benefits. Patient lived in a one story home with her son and two steps to enter prior to admission. Patient has a cane and was independent with ADL's. Patient does not have any HH history but has been to [facility] in the past. Currently patient's discharge plan is pending the results of her surgery. Patient and patient's son states that there choice is [facility] if SNF is needed after discharge. SW will continue to follow for DC planning needs. Plan: Patient's discharge plan is pending results of surgery. SW will continue to follow for discharge planning needs. Barrett Glover LMSW, [facility] Addendum: 09/15/16 at 1628 by BARRETT LEE Amended: Links added.
--- NOTE | 2016-09-15 16:47 | PCM.ANEP1 ---
Post Anesthesia Phase 1 PACU Phase 1 Assessment Vital Signs Vital Signs Date Time Temp Pulse Resp B/P Pulse Ox O2 Delivery O2 Flow Rate FiO2 09/15/16 10:42 36.7 62 18 146/68 98 Nasal Cannula 2.00 09/15/16 10:36 Supplement Oxygen 09/15/16 08:55 63 138/66 Nasal Cannula Anesthetic Administered: SAB Level of Alertness: Awake, talking GARCIA's with Equal Strength: No Pain: No Pain Scale Score: 2 Nausea or Vomiting: No Oxygen Delivery: Room Air Lungs: Clear to Auscultation, Normal Air Movement Marco A Castillo MD Sep 15, 2016 16:47
--- NOTE | 2016-09-15 16:50 | DRSVH ---
PROCEDURE: X-RAY RIGHT HIP COMPLETE, MINIMUM TWO VIEWS ([id number]) INDICATIONS: RIGHT HIP FRACTURE TECHNIQUE: 2 views of the hip were acquired. COMPARISON: , CR, XR FEMUR 2VW RT, 09/14/2016, 16:29. FINDINGS: Bones: Improved alignment status post ORIF of right intratrochanteric hip fracture. Bony alignment i s improved and expected position the femoral intramedullary renate as well as fixation screws involving the proximal and distal aspects of the prosthesis. Soft tissues: No suspicious soft tissue calcifications or masses. IMPRESSION: Improved alignment status post ORIF of right intratrochanteric hip fracture. Dictated by: Zechariah CUELLAR Interpreted: Ana Pruett MD on 09/15/2016 at 16:44 Transcribed by: CHELA on 09/15/2016 at 16:44 Approved by: Ana Pruett MD, PhD on 09/17/2016 at 9:48
--- NOTE | 2016-09-15 16:55 | PCM.ANEP2 ---
Post Anesthesia Evaluation ASA/CMS Post Anesthesia VS in Patient's Normal Range?: Yes Resp Stable; Airway Patent?: Yes CV Function & Hydration Stable: Yes Mental Status Recovered?: Yes Pain control Satisfactory?: Yes N/V Control Satisfactory?: Yes Marco A Castillo MD Sep 15, 2016 16:55
[2016-09-15] MEDS ORDERED: Polyethylene Glycol (PEG) 17 Gm Powder PO PRN (17:10)
[2016-09-15] MEDS ORDERED: diphenhydrAMINE 25 mg Capsule PO PRN (17:10)
[2016-09-15] MEDS ORDERED: Sodium Biphos-Phos 133 mL Enema RECTAL PRN (17:10)
[2016-09-15] MEDS ORDERED: Magnesium Hydroxide 10 mL Oral Concentration PO PRN (17:10)
--- NOTE | 2016-09-15 17:46 | NUR ---
POST OP Patient arrived back to room on hospital bed, awake and talking. O2 in place-3LPM, parsons catheter in place and draining. SCD's on both legs. ABD dressing to R hip is C/D/I with ice bag in place. When asked what patient's pain level was, she wiggled her right leg and said " I feel good". Patient has some sensation to bilateral legs and is able to wiggle toes bilaterally. Tolerating ice chips and ice water without difficulty.
--- NOTE | 2016-09-15 18:16 | DRSVH ---
PROCEDURE: X-RAY PELVIS W/LAT HIP (RT) ([id number]) INDICATIONS: post op TECHNIQUE: AP pelvis with lateral view(s) of the right hip(s). COMPARISON: [facility], , XR PELVIS W LATERAL HIP RT, 09/14/2016, 14:11. FINDINGS: Bones: Postsurgical changes compatible with ORIF of intertrochanteric right hip fracture noted. Fra cture is in anatomic alignment following reduction. He is not an acute fracture Fracture involving the lesser trochanter of the right femur is noted. Fracture fragment is displaced proximally. 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 Soft tissues: The visualized bowel gas pattern is normal. No suspicious soft tissue calcifications. IMPRESSION: Spica postsurgical change for ORIF of right hip fracture. Dictated by: Ana Pruett MD, PhD on 09/15/2016 at 18:14 Approved by: Ana Pruett MD, PhD on 09/15/2016 at 18:14
[2016-09-15] MEDS: Dextrose 5% 0.9% NaCl 1,000 ML IV SCH (20:02)
[2016-09-15] MEDS: oxyCODONE-Acetamin 5-325 mg Tablet PO PRN (20:03)
[2016-09-15] MEDS: Senna-Docusate 8.6-50 mg Tablet PO SCH (20:07)
[2016-09-15] MEDS: Sodium Chloride LOK Flush 10 mL Syringe IV SCH (23:29)
[2016-09-15] MEDS: CeFAZolin Inj 2 GM in IV Premix 1 EACH IV SCH (23:30)
[2016-09-16] VITALS (7 sets, daily range): BP systolic 89–127; BP diastolic 43–69; PULSE 59–95; RESP 14–21; O2SAT 84–100
[2016-09-16] MEDS: oxyCODONE-Acetamin 5-325 mg Tablet PO PRN ×4 (01:27→22:43)
--- NOTE | 2016-09-16 05:04 | NUR ---
Pain Pain managed with PO percocet this shift with good results. SCD on bilaterally, Park in place and draining, D5 1/2NS running at 70ml/h at this time. Pt removed dressings to her Rt hip- new dressings applied and ice at site. New IV site initiated at 2320 due to Pt removing previous IV catheter. Pt remains on 2L nc, tele Sinus 60s with pacer. Bedrest until therapy approves activity. Clear liquid diet, advancing as tolerated and meds crushed in applesauce. Pt is alert but oriented x1, follows commands but is forgetful. CSM intact, no cardiac or respiratory distress this shift. Will continue to monitor
[2016-09-16 05:08] LABS: Free Thyroxine Index 1.2 (1.2-4.9); Thyroxine (T4) 4.5 ug/dL (4.5-12.0)
[2016-09-16] MEDS: CeFAZolin Inj 2 GM in IV Premix 1 EACH IV SCH (06:24)
[2016-09-16 06:41] LABS: BASOPHILS % (AUTO) 0.1 % (0-3); EOSINOPHILS % (AUTO) 0.7 % (0-5); Mean Corpuscular Hemoglobin 30.9 pg (27.0-35.0); Mean Corpuscular Volume 96.9 fL (81-100); NEUTROPHILS % (AUTO) 57.3 % (40-74); Platelet Count 156 bil/L (150-400)
[2016-09-16] MEDS: Dextrose 5% 0.9% NaCl 1,000 ML IV SCH ×2 (07:27→21:45)
--- NOTE | 2016-09-16 07:29 | PCM.PNORTH ---
Subjective Date of Service: Sep 16, 2016 Visit Information: Reason for Visit Hip Fracture,Afib Surgery/Surgery Date Post-Op Day # Date of Admission: Sep 14, 2016 at 17:17 Hospital Day # Subjective Found the patient awake and somewhat poorly positioned in bed. No complaints of pain at this time. Per nursing patient became agitated last night postop and removed her right hip interoperative dressings. Nurse replaced these with Island dressings. Patient answering questions and follow commands this morning but was not overly communicative. Postop General: No Complaints, No Shortness of Breath, No Chest Pain Pain Management: PO Objective Exam Objective Orientation: Patient is awake and communicative and follows commands this morning. Nursing reports agitated overnight postop and removed interoperative dressing. Dressing: Interoperative dressing removed by patient while agitated last night. Nursing replaced this with Island dressings which are intact and lightly soiled. Wound: Wound is not visualized this morning. Nursing reports guy were intact at the time they changed the bandaging last night postop.. Compartments: Calf and thigh are soft and nontender. Mobility/sensation: Toe wiggle and sensation are intact at right lower extremity distally Abduction wedge: None ISIAH hose: None Park: Present and working Drain: None Gait: No gait yet as of this time with physical therapy. Vital Signs and I/O Vital Sign - Last Date Time Temp Pulse Resp B/P Pulse Ox O2 Delivery O2 Flow Rate FiO2 09/16/16 05:49 60 09/16/16 05:28 36.3 16 110/69 97 Nasal Cannula 2.00 09/15/16 03:56 95 Intake and Output 09/15/16 09/15/16 09/16/16 Cumulative From/Thru 15:00 23:00 07:00 09/14/16 13:14 - 09/16/16 05:41 Intake Total 1000 ml 500 ml 150 ml 1760 ml Output Total 375 ml 200 ml 1775 ml Balance 1000 ml 125 ml -50 ml -15 ml Intake Oral 0 ml 150 ml 150 ml IV Total 1000 ml 500 ml 1610 ml Output Urine Total 300 ml 200 ml 1300 ml Emesis 400 ml Estimated Blood Loss 75 ml 75 ml # Bowel Movements 0 0 0 Lab & Micro Results Laboratory Tests Test 09/16/16 05:20 White Blood Count 8.2th/mm3 (3.8-10.1) Red Blood Count 2.91mil/mm3 (3.90-5.20) Hemoglobin 9.0g/dL (12.0-15.6) Hematocrit 28.2% (35.0-46.0) Mean Corpuscular Volume 96.9fL (81-100) Mean Corpuscular Hemoglobin 30.9pg (27.0-35.0) Mean Corpuscular Hemoglobin Concent 31.9% (32.0-37.0) Red Cell Distribution Width 12.8% (12.3-15.4) Platelet Count 156bil/L (150-400) Neutrophils (%) (Auto) 57.3% (40-74) Lymphocytes (%) (Auto) 30.7% (14-46) Monocytes (%) (Auto) 11.0% (4-12) Eosinophils (%) (Auto) 0.7% (0-5) Basophils (%) (Auto) 0.1% (0-3) Result Diagram: 09/16/16 0520 09/15/16 0614 General Appearance: Alert, Oriented X3, Cooperative, No Acute Distress Extremities: No Compartment Syndrom Noted, Thigh & Calf Soft/Nontender Postop Sensory Motor: Distal Motor Intact, Movement in Toes, Distal Sensation Intact Activity: Activity per PT, Ambulate with PT (50% weightbearing only on the right lower extremity using front wheeled walker) Catheters: Urethral 2 Way Park Assessment & Plan Impression Patient underwent a right femoral IM nail last night on 09/15/2016. Patient was educated confused overnight and removed her interoperative dressings which were replaced by nursing with Island dressings. Wound was stated to be intact by nursing. Patient is not apparently agitated this morning but does appear somewhat confused. Problems: Plan Postop day # 1 from right femoral IM nail placed on 09/15/[address] David Hughes subsequent to right hip fracture occurring on 09/14/2016. Weight bearing status: 50% weightbearing only on the right lower extremity Mobility aid: Front wheeled walker Immobilization: None Precautions: Physical therapy: Continue formal physical therapy for mobility, gait and safety. Pain control: Maintain pain control with by mouth pain medications. DVT prophylaxis: Lovenox 40 mg subcutaneous daily 2 weeks postop with transition to ASA 325 EDC by mouth twice a day for an additional 4 weeks postop totaling 6 weeks postoperative DVT prophylaxis. Wound care: Keep wound and dressing clean and dry until seen in office in 2 weeks. Infectious DZ: None Park: Present and working. Dressing: Interoperative dressing was removed by patient in an agitated state last night postop. Nursing has replaced dressing with island type dressing which is intact and lightly soiled. Nursing has observed wound and states that guy were intact. Dressing will be removed and changed on postop day #2. Drain: Absent Abduction wedge: None ISIAH hose: None Nursing communication: Nursing please DC Vivian after first PT session. 2-week follow-up: Follow-up in 2 weeks at [facility] orthopedic clinic with mid-level provider for wound check and staple removal. 6-week follow-up: Follow-up in 6 weeks at [facility] orthopedic clinic with Dr. David Hughes with 2 view right femur on arrival. Orthopedics thanks hospitalist service for their help in the medical management of this patient. Discharge plan: Anticipate discharge to alf facility by hospitalist service on postop day #3 if patient is determined to be medically stable to do so. VTE Prophylaxis: Sub-Q Enoxaparin (Lovenox 40 mg subcutaneous daily 2 weeks postop with transition to ASA 325 mg EC by mouth 3 times a day for an additional 4 weeks postop totaling 6 weeks postoperative DVT prophylaxis.), SCDs Resuscitation Status: DNR/DNI:Do Not Resuscitate/Intubate Charles Rosado PA-C Sep 16, 2016 07:29
[2016-09-16] MEDS: Insulin LISPRO 300 Unit/3 mL Inj SUBQ SCH ×4 (08:14→22:00)
[2016-09-16] MEDS: Sodium Chloride LOK Flush 10 mL Syringe IV SCH ×2 (08:15→17:04)
[2016-09-16] MEDS: Senna-Docusate 8.6-50 mg Tablet PO SCH ×2 (08:15→20:52)
--- NOTE | 2016-09-16 08:15 | NUR ---
O2 Patient removed O2 during night while sleeping, O2 sats checked on RA and were 84%. Place patient back on 3 LPM and sats came up to 93%. Will continue to monitor patient.
--- NOTE | 2016-09-16 14:53 | OP ---
[address] [address] OPERATIVE REPORT PATIENT: ELVIRA ALVAREZ : 1925 MR#: [id number] ADMIT: 09/14/2016 JOB ID: [id number] DATE OF SURGERY: 09/15/2016 PREOPERATIVE DIAGNOSIS(ES): Right intertrochanteric femoral fracture. S72.141A POSTOPERATIVE DIAGNOSIS(ES): Right intertrochanteric femoral fracture. S72.141A PROCEDURE: Open reduction and internal fixation, right intertrochanteric femoral fracture, with locked intramedullary renate, CPT code 63402. PROSTHESES UTILIZED: Synthes 12 mm diameter locked trochanteric femoral nail. SURGEON: David Hughes MD. ASSISTING: None. ANESTHESIA: Spinal. ESTIMATED BLOOD LOSS: 75 mL. DRAINS: None. COMPLICATIONS: None. SPONGE AND NEEDLE COUNT: Correct. SPECIMEN: No specimen to Pathology. COMPLICATIONS: No complications. INDICATIONS: This is an 89-year-old female who fell sustaining a displaced right intertrochanteric femoral fracture. DESCRIPTION OF PROCEDURE: Under adequate spinal anesthetic, the patient was placed on the fracture table. The right leg was placed in traction, and the left leg was also placed in a holding boot and placed in the scissor technique to allow C-arm mobility. After appropriate time-out was called, x-rays were taken, confirming good position of the fracture as it was out to length on AP and lateral views with the traction. Right hip was prepped and draped in a sterile fashion. An incision was fashioned just proximal to the greater trochanter. A guide pin was placed over the greater trochanter with a lateral trochanteric femoral entry point. It was documented in good position in the AP and lateral views. The proximal portion of the canal was opened with a reamer. Ball-tipped guide was placed down the shaft of the femur. A 12 mm diameter, short Synthes locked trochanteric femoral nail was then placed in the femoral canal. Attention was next turned to the compression screw for the femoral neck and head. The ball-tipped guide was removed from the femur. Incision was fashioned over the lateral aspect of the femur through the tensor fascia joanna. The vastus lateralis was incised. Utilizing the alignment jig, this was placed down to the lateral aspect of the femur. A guide pin was then introduced in the femoral neck and head, and documented in good position on AP and lateral views. It was then measured, and a compression screw was placed through the proximal portion of the nail. The nail was then subsequently locked, and the guide pin was removed from the femoral neck and head. Attention was next turned to the distal interlock. The alignment jig was then placed through a small incision through the lateral aspect of the femur through the tensor fascia joanna down to the bone. This was drilled, measured and a 36-mm fully threaded cortical screw was placed. The alignment jig was removed. Image intensification confirmed good position of the hardware in AP and lateral views. The whole alignment jig for the renate was also removed. Final image intensification pictures were taken. The wounds were irrigated with antibiotic solution. The deeper layers were closed proximally over the tensor fascia joanna with #1 Vicryl, 0 and 2-0 Vicryl, and skin was reapproximated with guy. The two smaller more inferior wounds were closed with interrupted sutures along the tensor fascia joanna with 0 Vicryl, subcutaneous with 2-0 Vicryl and skin reapproximated with guy. Xeroform dry sterile dressings were applied. The patient has carefully taken off the fracture table. The patient was taken to recovery room in stable condition. Sponge and needle count correct. No complications. PLAN: The patient will be partial weightbearing 50% body weight with Physical Therapy. She will require anticoagulation for DVT prophylaxis postoperatively in the hospital, as well as after she is discharged to long term. She will need her guy removed in two weeks. May be seen back in the office in two weeks for staple removal by one of the PAs, and I will see the patient back in followup four weeks thereafter. CC: [facility]-Orthopedics JESSI- Hoda Morse
--- NOTE | 2016-09-16 15:16 | NUR ---
ACTIVITY Patient drowsy throughout most of shift. Did not awaken enough to eat breakfast, set up assist for lunch and ate about 50%. Worked with PT but was unable to stand at edge of bed. Patient repositioned many times throughout shift to keep good alignment between hips. Medicated with percocet for pain and ice bag to R hip. Meds crushed in applesauce. Will continue to monitor.
--- NOTE | 2016-09-16 15:30 | NUR ---
Evaluation completed. Please go to "Notes" then click on "Assessments and Notes" (bottom left corner of screen). Then select appropriate discipline tab on top of screen.
--- NOTE | 2016-09-16 16:38 | PCM.PNMED ---
Subjective Date of Service Sep 16, 2016 Subjective Patient seen this morning, no acute complaints but notably pretty lethargic. Receiving Percocet for pain, postop day 1 for right femoral nail placement by orthopnea after previous hip arthroplasty Exam Vital Signs Vital Sign - Last Date Time Temp Pulse Resp B/P Pulse Ox O2 Delivery O2 Flow Rate FiO2 09/16/16 13:21 35.6 64 21 89/43 95 Nasal Cannula 2.00 09/15/16 03:56 95 Intake and Output 09/15/16 09/15/16 09/16/16 Cumulative From/Thru 15:00 23:00 07:00 09/14/16 13:14 - 09/16/16 05:41 Intake Total 1000 ml 500 ml 150 ml 1760 ml Output Total 375 ml 200 ml 1775 ml Balance 1000 ml 125 ml -50 ml -15 ml Intake Oral 0 ml 150 ml 150 ml IV Total 1000 ml 500 ml 1610 ml Output Urine Total 300 ml 200 ml 1300 ml Emesis 400 ml Estimated Blood Loss 75 ml 75 ml # Bowel Movements 0 0 0 Exam NAD alert mood affect WNL, lethargic NC/AT no icterus no injected eyes EOMI PERRL /no pharyngeal lesions/ no oral lesions / hearing intact Supple neck crackles bilateral equal chest rise / no accessory muscle use / speaks in full sentences / no rrw irreg irreg [id number], S2, S3 / no mrg / 2+ radial pulses Soft nt nd + BS no hepatosplenomegaly No edema no cyanosis no ecchymosis of lower extremities No rash / no jaundice GARCIA IVs and Medications Medications Reviewed: Medications were reviewed in detail Lab and Diagnostics Result Diagram: 09/16/16 0520 09/15/16 0614 Assessment & Plan Active issues and reason for admission, acute delirium, 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, AMS in the gao but not in ER, negative repeat head CT, likely delirium and EtOH component, inaccurate/poor historian Hip fracture, status post right femoral nail placement on September 15 --Dr Odell dalton transient RVR in ER --caution w/ fluid overload, lasix now, monitor electrolytes --echo pending questionable xaralto use --patient indicates she does not take "much" pills --ffp for am ordered intraop Echo repeat due to fluid overload, dc banana bag Delirium resolving, known EtOH use --tsh / NH3 pending / continue thiamine Gastroenteritis - vomiting w/ dysphagia --supportive care, swallow evaluation, tolerating crushed pills in apple sauce --PPI Chronic issues known prior to admission, present on admission afib monitor electrolyes and i/o EtOh CIWA Diet dysphagia DVT prophylaxis lovenox Code DNR Disposition inpt Assessment and plan were discussed with patient Pain Evaluation: Adequate Pain Control VTE Prophylaxis: Sub-Q Enoxaparin (Lovenox 40 mg subcutaneous daily 2 weeks postop with transition to ASA 325 mg EC by mouth 3 times a day for an additional 4 weeks postop totaling 6 weeks postoperative DVT prophylaxis.), SCDs VTE Mechanical Devices: Intermittant Pneumatic CD Resuscitation Status: DNR/DNI:Do Not Resuscitate/Intubate Time spent 30 minutes spent with evaluation and management Ambrocio Lemos DO Sep 16, 2016 16:38
--- NOTE | 2016-09-16 20:20 | NUR ---
AFIB Patient converted to AFIB with a HR of 145. A stat EKG was ordered and the night Hospitalist was contacted and informed of the patient's condition. Metoprolol was given and Dr. Vergara asked to be contacted with the patient's heart rate in a half hour.
[2016-09-17] VITALS (9 sets, daily range): BP systolic 85–123; BP diastolic 45–65; PULSE 54–107; RESP 18–20; O2SAT 94–100
--- NOTE | 2016-09-17 00:30 | NUR ---
AFib Patient's HR came down to 96 bpm. Still in AFib with occasional pacing. Night hospitalist was paged, but no response was received. Continuing to monitor.
[2016-09-17] MEDS: Sodium Chloride LOK Flush 10 mL Syringe IV SCH ×3 (02:09→16:30)
[2016-09-17] MEDS: oxyCODONE-Acetamin 5-325 mg Tablet PO PRN ×2 (05:49→14:39)
[2016-09-17] MEDS: Senna-Docusate 8.6-50 mg Tablet PO SCH ×2 (09:09→20:15)
[2016-09-17 10:28] LABS: BASOPHILS % (AUTO) 0.4 % (0-3); EOSINOPHILS % (AUTO) 1.9 % (0-5); MONOCYTES % (AUTO) 9.8 % (4-12); Mean Corpuscular Hemoglobin 30.8 pg (27.0-35.0); Mean Corpuscular Volume 96.1 fL (81-100); NEUTROPHILS % (AUTO) 62.4 % (40-74); Platelet Count 168 bil/L (150-400)
[2016-09-17] MEDS: Insulin LISPRO 300 Unit/3 mL Inj SUBQ SCH ×4 (10:38→22:00)
--- NOTE | 2016-09-17 10:38 | NUR ---
Telemetry Update: Sinus Rhythm Patient has been Afib 90-110s with occasional VPACING. At 10:40, patient converted to Sinus Rhythm / APACED at a rate of 60. JAVY hsieh.
--- NOTE | 2016-09-17 12:06 | PROG NOTE ---
[address] [address] PROGRESS NOTE PATIENT: ELVIRA ALVAREZ : 1925 MR#: [id number] ADMIT: 09/14/2016 JOB ID: [id number] DATE: 09/17/2016 CHIEF COMPLAINT: This is an 89-year-old female status post open reduction and internal fixation right intertrochanteric femoral fracture on September 15, 2016. This patient appears to be more alert and oriented today. Her son is in the room with her and she is conversing normally. OBJECTIVE: Vital signs blood pressure 117/65, pulse of 61 and regular, O2 saturation of 94, respirations of 18. The patient is moving both lower extremities. Her right hip dressing is clean and dry. Neurovascular exam intact both lower extremities. LABORATORY DATA: White count 8300, hemoglobin 10.2, hematocrit 31.8, platelet count 168,000. IMPRESSION: Status post open reduction and internal fixation right intertrochanteric femoral fracture with a locked intramedullary implant. PLAN: The patient will continue to be monitored on the medical service. She may be slowly mobilized with therapy partial weightbearing 50% of her body weight on her right leg. She will need staple removal in two weeks and may be seen by one of the PAs in the office. I will see her back in followup four weeks thereafter, or about six weeks postoperatively. She should receive DVT prophylaxis postoperatively even after she is discharged for an additional 3-4 weeks. CC: [facility] - Orthopedics
--- NOTE | 2016-09-17 14:12 | PCM.PNMED ---
Subjective Date of Service Sep 17, 2016 Subjective Patient appeared more alert this morning when evaluated. Did have an episode of A. fib with RVR overnight was given metoprolol with improvement in heart rate. An EKG has been ordered but not completed yet. Exam Vital Signs Vital Sign - Last Date Time Temp Pulse Resp B/P Pulse Ox O2 Delivery O2 Flow Rate FiO2 09/17/16 13:59 36.7 62 18 111/54 100 Nasal Cannula 2.00 09/15/16 03:56 95 Intake and Output 09/16/16 09/16/16 09/17/16 Cumulative From/Thru 15:00 23:00 07:00 09/14/16 13:14 - 09/17/16 06:39 Intake Total 933 ml 420 ml 250 ml 3363 ml Output Total 250 ml 50 ml 2075 ml Balance 933 ml 170 ml 200 ml 1288 ml Intake Oral 420 ml 250 ml 820 ml IV Total 933 ml 2543 ml Output Urine Total 250 ml 50 ml 1600 ml Emesis 400 ml Estimated Blood Loss 75 ml # Bowel Movements 0 Exam NAD alert mood affect WNL, lethargic NC/AT no icterus no injected eyes EOMI PERRL /no pharyngeal lesions/ no oral lesions / hearing intact Supple neck crackles bilateral equal chest rise / no accessory muscle use / speaks in full sentences / no rrw irreg irreg [id number], S2, S3 / no mrg / 2+ radial pulses Soft nt nd + BS no hepatosplenomegaly No edema no cyanosis no ecchymosis of lower extremities No rash / no jaundice GARCIA IVs and Medications Medications Reviewed: Medications were reviewed in detail Lab and Diagnostics Result Diagram: 09/17/16 1022 09/17/16 1022 Assessment & Plan Active issues and reason for admission, acute delirium, 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, AMS in the gao but not in ER, negative repeat head CT, likely delirium and EtOH component, inaccurate/poor historian Hip fracture, status post right femoral nail placement on September 15 -- Patient with recommendations --DVT prophylaxis planned to continue 3 weeks of discharge per hour though --Follow-up in ortho clinic with PA for staple removal in 2 weeks and with surgeon approximately 4 weeks postoperatively afib transient RVR in ER --caution w/ fluid overload, lasix now, monitor electrolytes --echo completed Referring Physician: Preserved EF, pacemaker present moderate TR, right ventricular moderately dilated questionable xaralto use --patient indicates she does not take "much" pills Delirium resolving, known EtOH use --tsh normal/ continue thiamine Gastroenteritis - vomiting w/ dysphagia --supportive care, swallow evaluation, tolerating crushed pills in apple sauce --PPI Chronic issues known prior to admission, present on admission afib monitor electrolyes and i/o EtOh CIWA Diet dysphagia DVT prophylaxis lovenox Code DNR Disposition inpt Assessment and plan were discussed with patient Pain Evaluation: Adequate Pain Control VTE Prophylaxis: Sub-Q Enoxaparin (Lovenox 40 mg subcutaneous daily 2 weeks postop with transition to ASA 325 mg EC by mouth 3 times a day for an additional 4 weeks postop totaling 6 weeks postoperative DVT prophylaxis.), SCDs VTE Mechanical Devices: Intermittant Pneumatic CD Resuscitation Status: DNR/DNI:Do Not Resuscitate/Intubate Time spent 30 minutes spent with evaluation and management Ambrocio Lemos DO Sep 17, 2016 14:12
[2016-09-17] MEDS: Dextrose 5% 0.9% NaCl 1,000 ML IV SCH (14:24)
--- NOTE | 2016-09-17 14:40 | NUR ---
Pain patient is alert to self only. family at the bed side. patient denied pain per assessment at first. patient started to c/o pain to right hip while speaking to family. pain 04/06. PRN pain mediation given with effective results.
--- NOTE | 2016-09-17 15:04 | NUR ---
Social Work: TORI Patient's son signed TORI
--- NOTE | 2016-09-17 17:47 | NUR ---
Social Work: Continued Discharge Planning Yarn Bleaching Machine Operator met with patient and patient's son at bedside to discuss discharge planning. Patient and patient's son requested that patient be referred to [facility]. Yarn Bleaching Machine Operator will give [facility] access to patient's chart. SW will continue to follow patient. Plan: Patient is likely to discharge to [facility] (pending acceptance). SW will continue to follow. Ofe Glover LMSW, KEISHA
--- NOTE | 2016-09-17 17:56 | NUR ---
bladder scanned pt at about 5:20 and she had 352 Addendum: 09/17/16 at 1758 by SHAMA BARROW CNA Amended: Links added.
--- NOTE | 2016-09-17 18:23 | NUR ---
Bladder scan out put 100 cc this AM, bladder scan 158 ml. Chon paged doctor r/t bladder Scan aprox 530PM with amount 352ml. awaiting response. IV Hydration started as ordered this shift. Continue to monitor hydration.
[2016-09-18] VITALS (8 sets, daily range): BP systolic 118–155; BP diastolic 58–80; PULSE 62–116; RESP 16–20; O2SAT 92–98
[2016-09-18] MEDS: Sodium Chloride LOK Flush 10 mL Syringe IV SCH ×5 (00:30→23:21)
[2016-09-18] MEDS: oxyCODONE-Acetamin 5-325 mg Tablet PO PRN ×3 (01:48→23:27)
[2016-09-18] MEDS: Dextrose 5% 0.9% NaCl 1,000 ML IV SCH ×2 (02:21→16:39)
--- NOTE | 2016-09-18 02:52 | NUR ---
Park Patient had not voided in several hours. Patient was bladder scanned and was found to be retaining 600cc urine in her bladder. Park Catheter was placed at 0230. Park patent and draining.
[2016-09-18 06:32] LABS: BASOPHILS % (AUTO) 0.3 % (0-3); EOSINOPHILS % (AUTO) 2.8 % (0-5); MONOCYTES % (AUTO) 8.7 % (4-12); Mean Corpuscular Hemoglobin 30.9 pg (27.0-35.0); Mean Corpuscular Volume 95.4 fL (81-100); NEUTROPHILS % (AUTO) 52.8 % (40-74); Platelet Count 181 bil/L (150-400)
--- NOTE | 2016-09-18 06:36 | NUR ---
IV Patient pulled her IV out this morning. Patient also attempted to pull out her Park, but Park remains patent and draining. Patient had removed her O2 around the same time. After having a talk with the patient she wasnt able to explain what caused her to remove all these things, but seemed open to complying with having them put back on. Attmept was made to start a new IV, but it was not successful. Attempting to contact IV therapy to get assistance.
[2016-09-18] MEDS: Insulin LISPRO 300 Unit/3 mL Inj SUBQ SCH ×4 (09:18→22:00)
[2016-09-18] MEDS: Senna-Docusate 8.6-50 mg Tablet PO SCH ×2 (09:19→21:38)
--- NOTE | 2016-09-18 12:47 | PCM.PNORTH ---
Subjective Date of Service: Sep 18, 2016 Visit Information: Reason for Visit Hip Fracture,Afib Surgery/Surgery Date Hip IM nail 09/15/2016 Post-Op Day # 2 Date of Admission: Sep 14, 2016 at 17:17 Hospital Day # Subjective Patient states the hip is a bit sore since surgery. Overall, she is in good spirits. She plans on going to rehab after hospital stay. Postop General: No Complaints, No Shortness of Breath, No Chest Pain Pain Management: PO Objective Exam Objective Patient is seen laying in bed with her son at bedside. Vital Signs and I/O Vital Sign - Last Date Time Temp Pulse Resp B/P Pulse Ox O2 Delivery O2 Flow Rate FiO2 09/18/16 09:14 36.0 99 20 155/58 95 Nasal Cannula 2.00 09/15/16 03:56 95 Intake and Output 09/17/16 09/17/16 09/18/16 Cumulative From/Thru 15:00 23:00 07:00 09/14/16 13:14 - 09/18/16 06:30 Intake Total 766 ml 375 ml 4504 ml Output Total 100 ml 750 ml 2925 ml Balance 666 ml -375 ml 1579 ml Intake Oral 560 ml 375 ml 1755 ml IV Total 206 ml 2749 ml Output Urine Total 100 ml 750 ml 2450 ml Emesis 400 ml Estimated Blood Loss 75 ml # Bowel Movements 0 0 Lab & Micro Results Laboratory Tests Test 09/18/16 06:02 White Blood Count 6.8th/mm3 (3.8-10.1) Red Blood Count 2.82mil/mm3 (3.90-5.20) Hemoglobin 8.7g/dL (12.0-15.6) Hematocrit 26.9% (35.0-46.0) Mean Corpuscular Volume 95.4fL (81-100) Mean Corpuscular Hemoglobin 30.9pg (27.0-35.0) Mean Corpuscular Hemoglobin Concent 32.3% (32.0-37.0) Red Cell Distribution Width 12.7% (12.3-15.4) Platelet Count 181bil/L (150-400) Neutrophils (%) (Auto) 52.8% (40-74) Lymphocytes (%) (Auto) 34.8% (14-46) Monocytes (%) (Auto) 8.7% (4-12) Eosinophils (%) (Auto) 2.8% (0-5) Basophils (%) (Auto) 0.3% (0-3) Sodium Level 144mEq/L (134-144) Potassium Level 3.9mEq/L (3.5-5.2) Chloride Level 106mEq/L (97-108) Carbon Dioxide Level 24mmol/L (18-29) Blood Urea Nitrogen 13mg/dL (8-27) Creatinine 0.52mg/dL (0.57-1.00) Estimat Glomerular Filtration Rate 159mL/min (>59) Glucose Level 152mg/dL (60-99) Calcium Level 8.4mg/dL (8.5-10.1) Result Diagram: 09/18/1660109/18/16601 General Appearance: Alert, Oriented X3, Cooperative, No Acute Distress Extremities: Distal Pulses Palpable, No Compartment Syndrom Noted, Thigh & Calf Soft/Nontender Postop Sensory Motor: Distal Motor Intact, NVI Distally SURGICAL WOUND : Wound Location/Description Lateral right hip: 3 surgical wounds are well approximated. [place] are intact. Slight serous drainage. Moderate ecchymosis present. Mild swelling. Wounds are cleansed with hydrogen peroxide and Island dressings applied. Activity: Activity per PT, Ambulate with PT (50% weightbearing only on the right lower extremity using front wheeled walker) Catheters: Urethral 2 [address] Park Assessment & Plan Impression status post hip IM nail Problems: Plan Weightbearin% weightbearing with walker x 1 month. Patient may need platform walker due to carpal tunnel syndrome DVT prophylaxis: DC Lovenox. Resume patients usual dose of Xarelto 20 mg daily Physical therapy for transfers, progressive ambulation, therapeutic exercise Wound care: dressing changed today DILCIA Park today Discharge plan: Discharge to SNF in 1-2 days, when medically stable Follow-up plan: In 2 weeks at [facility] with PA for wound check and at [address] Hughes with XR Pain Management: Percocet, Tylenol VTE Prophylaxis: Sub-Q Enoxaparin (DC today, resume Xarelto), SCDs Resuscitation Status: DNR/DNI:Do Not Resuscitate/Intubate Natasha Jj PA-C Sep 18, 2016 12:46 Natasha Jj PA-C Sep 18, 2016 12:46
--- NOTE | 2016-09-18 13:22 | PCM.PNMED ---
Subjective Date of Service Sep 18, 2016 Subjective Patient seen, resting this morning. No acute complaints. Apparently facility will not accept patient until she has 24 hours of not pulling Park or IV. Will add small dose of Seroquel tonight. Atrial paced overnight, intermittent atrial fibrillation this morning Exam Vital Signs Vital Sign - Last Date Time Temp Pulse Resp B/P Pulse Ox O2 Delivery O2 Flow Rate FiO2 09/18/16 09:14 36.0 99 20 155/58 95 Nasal Cannula 2.00 09/15/16 03:56 95 Intake and Output 09/17/16 09/17/16 09/18/16 Cumulative From/Thru 15:00 23:00 07:00 09/14/16 13:14 - 09/18/16 06:30 Intake Total 766 ml 375 ml 4504 ml Output Total 100 ml 750 ml 2925 ml Balance 666 ml -375 ml 1579 ml Intake Oral 560 ml 375 ml 1755 ml IV Total 206 ml 2749 ml Output Urine Total 100 ml 750 ml 2450 ml Emesis 400 ml Estimated Blood Loss 75 ml # Bowel Movements 0 0 Exam NAD alert mood affect WNL, lethargic NC/AT no icterus no injected eyes EOMI PERRL /no pharyngeal lesions/ no oral lesions / hearing intact Supple neck crackles bilateral equal chest rise / no accessory muscle use / speaks in full sentences / no rrw irreg irreg [id number], S2, S3 / no mrg / 2+ radial pulses Soft nt nd + BS no hepatosplenomegaly No edema no cyanosis no ecchymosis of lower extremities No rash / no jaundice Cranial nerves II through XII grossly intact, no focal deficits, moving all extremities IVs and Medications Medications Reviewed: Medications were reviewed in detail Lab and Diagnostics Result Diagram: 09/18/1660109/18/16601 Assessment & Plan Active issues and reason for admission, acute delirium, 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, AMS in the gao but not in ER, negative repeat head CT, likely delirium and EtOH component, inaccurate/poor historian Hip fracture, status post right femoral nail placement on September 15 -- Patient with recommendations --DVT prophylaxis planned to continue 3 weeks of discharge per hour though --Follow-up in ortho clinic with PA for staple removal in 2 weeks and with surgeon approximately 4 weeks postoperatively afib transient RVR in ER --caution w/ fluid overload, lasix now, monitor electrolytes --echo completed Referring Physician: Preserved EF, pacemaker present moderate TR, right ventricular moderately dilated questionable xaralto use --patient indicates she does not take "much" pills -- We will restart xarelto at 15 mg dose given age Delirium resolving, known EtOH use --tsh normal/ continue thiamine -- We will add [id number] mg for the evening Gastroenteritis - vomiting w/ dysphagia --supportive care, swallow evaluation, tolerating crushed pills in apple sauce --PPI Chronic issues known prior to admission, present on admission afib monitor electrolyes and i/o EtOh CIWA Diet dysphagia DVT prophylaxis lovenox Code DNR Disposition inpt - awaiting bed availability given patient cannot transfer until she had 24 hours of not pulling IVs and Park's per accepting nursing facility Assessment and plan were discussed with patient Pain Evaluation: Adequate Pain Control VTE Prophylaxis: Sub-Q Enoxaparin (Lovenox 40 mg subcutaneous daily 2 weeks postop with transition to ASA 325 mg EC by mouth 3 times a day for an additional 4 weeks postop totaling 6 weeks postoperative DVT prophylaxis.), SCDs VTE Mechanical Devices: Intermittant Pneumatic CD Resuscitation Status: DNR/DNI:Do Not Resuscitate/Intubate Time spent 35 minutes spent with evaluation and management Ambrocio Lemos DO Sep 18, 2016 13:22
--- NOTE | 2016-09-18 14:00 | NUR ---
MENTATION/ACTIVITY/POST-OP PROGRESS Patient is alert to person. She has not attempted to get OOB or pull on any of her lines. More compliant with care while her son is here. Denies pain at this time. Percocet 1 tab PO administered prior to PT. Tolerating her diet and PO liquids. Encouraged to increase PO liquids. She continues to be on O2 at 2 LPM via NC. Denies SOB. Up with PT only at this time. Jaycob is CDI. Dressing changed to an island dressing. Her son is at the bedside at this time. Will turn bed alarm on when her son leaves. Addendum: 09/18/16 at 1406 by DONNY PATEL RN MD NOTIFICATION (NOTE FOR [id number]) Patient converted back to Afib. She is on Metoprolol PO. HX: Afib. Dr. Lemos was made aware.
--- NOTE | 2016-09-18 19:21 | NUR ---
assumed care/mentation Received report from Deacon PALAFOX at 1500 and assumed care of pt. Pt A+O to person, place, month, president, situation, pt states she is unsure of exact date but states "It's monday because football is on TV". [place] alarm placed for pt safety. R hip dressing C/D/I. Pt stood at EOB this afternoon with PT, with 1PA and FWW, supposed to be 50% WB on R leg. Report to next shift at 1900. Call light in reach. Care continues.
[2016-09-19] MEDS: Dextrose 5% 0.9% NaCl 1,000 ML IV SCH (00:12)
[2016-09-19 00:17] VITALS: BP 120/72; PULSE 99; RESP 20; O2SAT 95
[2016-09-19] MEDS: oxyCODONE-Acetamin 5-325 mg Tablet PO PRN (00:38)
--- NOTE | 2016-09-19 03:18 | NUR ---
PAIN; pt c/o pain, talking about parsons catheter but pointing to hip incision. Pt pulled dsg off of hip, replaced. Slightly confused off and on. Percocet given for incisional pain, pt still c/o pain. Second percocet given with stated relief. Ortho checks wnl. [place] alarm on bed.
[2016-09-19 05:28] VITALS: BP 124/80; PULSE 120; RESP 18; O2SAT 97
[2016-09-19 05:35] LABS: BASOPHILS % (AUTO) 0.4 % (0-3); EOSINOPHILS % (AUTO) 4.2 % (0-5); MONOCYTES % (AUTO) 9.2 % (4-12); Mean Corpuscular Hemoglobin 31.1 pg (27.0-35.0); Mean Corpuscular Volume 96.1 fL (81-100); NEUTROPHILS % (AUTO) 51.3 % (40-74); Platelet Count 213 bil/L (150-400)
[2016-09-19 07:56] VITALS: BP 110/60; PULSE 75; RESP 16; O2SAT 100
[2016-09-19] MEDS: Insulin LISPRO 300 Unit/3 mL Inj SUBQ SCH ×2 (08:00→12:00)
[2016-09-19] MEDS: Senna-Docusate 8.6-50 mg Tablet PO SCH (08:21)
[2016-09-19] MEDS: Sodium Chloride LOK Flush 10 mL Syringe IV SCH (08:23)
--- NOTE | 2016-09-19 10:52 | PCM.PNORTH ---
Subjective Date of Service: Sep 19, 2016 Visit Information: Reason for Visit Hip Fracture,Afib Surgery/Surgery Date Post-Op Day # Date of Admission: Sep 14, 2016 at 17:17 Hospital Day # Subjective Status post day #3 right hip IM nail. Patient doing well, states that her pain is well controlled. Feels better than yesterday. Postop General: No Complaints, No Shortness of Breath, No Chest Pain Pain Management: PO Objective Exam Objective Patient is alert and oriented 3. Answering questions appropriately. Sitting up in bed and not in any acute distress today. Dressing is clean, slightly saturated and intact. Patient able to wiggle toes. Calf is soft and nontender, pulses intact, sensation is full. Vital Signs and I/O Vital Sign - Last Date Time Temp Pulse Resp B/P Pulse Ox O2 Delivery O2 Flow Rate FiO2 09/19/16 07:56 36.4 75 16 110/60 100 Room Air 09/19/16 00:17 2.00 09/15/16 03:56 95 Intake and Output 09/18/16 09/18/16 09/19/16 Cumulative From/Thru 15:00 23:00 07:00 09/14/16 13:14 - 09/19/16 05:51 Intake Total 638 ml 972 ml 400 ml 6514 ml Output Total 200 ml 1795 ml 4920 ml Balance 638 ml 772 ml -1395 ml 1594 ml Intake Oral 972 ml 400 ml 3127 ml IV Total 638 ml 3387 ml Output Urine Total 200 ml 1795 ml 4445 ml Emesis 400 ml Estimated Blood Loss 75 ml # Bowel Movements 0 0 Lab & Micro Results Laboratory Tests Test 09/19/16 05:05 White Blood Count 5.7th/mm3 (3.8-10.1) Red Blood Count 2.80mil/mm3 (3.90-5.20) Hemoglobin 8.7g/dL (12.0-15.6) Hematocrit 26.9% (35.0-46.0) Mean Corpuscular Volume 96.1fL (81-100) Mean Corpuscular Hemoglobin 31.1pg (27.0-35.0) Mean Corpuscular Hemoglobin Concent 32.3% (32.0-37.0) Red Cell Distribution Width 12.7% (12.3-15.4) Platelet Count 213bil/L (150-400) Neutrophils (%) (Auto) 51.3% (40-74) Lymphocytes (%) (Auto) 33.7% (14-46) Monocytes (%) (Auto) 9.2% (4-12) Eosinophils (%) (Auto) 4.2% (0-5) Basophils (%) (Auto) 0.4% (0-3) Sodium Level 144mEq/L (134-144) Potassium Level 3.5mEq/L (3.5-5.2) Chloride Level 105mEq/L (97-108) Carbon Dioxide Level 29mmol/L (18-29) Blood Urea Nitrogen 11mg/dL (8-27) Creatinine 0.52mg/dL (0.57-1.00) Estimat Glomerular Filtration Rate 159mL/min (>59) Glucose Level 134mg/dL (60-99) Calcium Level 8.2mg/dL (8.5-10.1) Result Diagram: 09/19/16 0505 09/19/16 0505 Activity: Activity per PT, Ambulate with PT (50% weightbearing only on the right lower extremity using front wheeled walker) Catheters: Urethral [address] Assessment & Plan Impression Status post day #3 right hip IM nail. Patient doing well. Problems: Plan Weightbearin% weightbearing with walker x 1 month. Patient may need platform walker due to carpal tunnel syndrome DVT prophylaxis: DC Lovenox. Resume patients usual dose of Xarelto 20 mg daily Physical therapy for transfers, progressive ambulation, therapeutic exercise Wound care: dressing change today Orthopedics will sign off at this point. Thank you for code managing this patient's care. Patient is ready for transfer as soon as appropriate. Discharge plan: Discharge to SNF in 1-2 days, when medically stable Follow-up plan: In 2 weeks at [facility] with DAYSI for wound check and at [address] Hughes with XR VTE Prophylaxis: Sub-Q Enoxaparin (DC today, resume Xarelto), SCDs Resuscitation Status: DNR/DNI:Do Not Resuscitate/Intubate Myles Izaguirre PA-C Sep 19, 2016 10:52
--- NOTE | 2016-09-19 10:57 | NUR ---
[facility] Signed
[2016-09-19] MEDS ORDERED: POLY17PO6 PO (14:50)
[2016-09-19] MEDS ORDERED: OXYC1TAB24 PO (14:50)
[2016-09-19] MEDS ORDERED: QUET25TA73 PO (14:50)
[2016-09-19] MEDS ORDERED: DOCU-41 PO (14:50)
[2016-09-19] MEDS ORDERED: Senna/Docusate Sodium PO (14:50)
--- NOTE | 2016-09-19 14:57 | PCM.DIMED ---
Discharge Instructions Date of Service Sep 19, 2016 Dates of Hospitalization Sep 14, 2016 at 17:17 Discharge Diagnosis Discharge Diagnosis # Acute Right intertrochanteric femoral fracture post Open reduction and internal fixation, right intertrochanteric femoral fracture, with locked intramedullary renate on 09/15/16 # Chronic a-fib with acute transient RVR - on Xarelto for anticoagulation # Acute post-op delirium, resolved. # Acute Gastroenteritis. resolved # History of alcohol use Diet Low fat, Low Sodium, Heart Healthy Activity Other (per physical therapy and as noted below) Patient Instructions Weightbearin% weightbearing with walker x 1 month. Patient may need platform walker due to carpal tunnel syndrome Physical therapy for transfers, progressive ambulation, therapeutic exercise Follow-up plan 1. Follow-up plan: In 2 weeks at [facility] with PA for wound check and at [address] Hughes with x-ray [address] [address] 2. Followup with primary care provider in 1-2 weeks Follow-up Provider: Jaimie Martines MD Provider: David Hughes MD, Masoud Sep 19, 2016 14:57
--- NOTE | 2016-09-19 15:23 | NUR ---
Spoke with Kate Reis at [facility] and asked her to reschedule transport for between [phone]. Addendum: 09/19/16 at 1608 by SALIMA VELAZCO CM Faxed orders to [facility] and placed copy on chart
--- NOTE | 2016-09-19 15:55 | NUR ---
Social Work: Discharge: Forensic Psychiatrist spoke with the patient's daughter and notified her that the patient was accepted and transferring to SNF. Patient's son voiced understanding. Ofe Glover, [place], ACM
--- NOTE | 2016-09-19 16:46 | NUR ---
discharge pr dischaarged per cabulance in wheel chair, report called [facility]. no questions per receiving nurse harjit alvarez. son era aware mom is transferring to [facility].no answer at his phone number.
--- NOTE | 2016-09-21 17:12 | PCM.DC.MED ---
Discharge Summary Date of Service Sep 21, 2016 Dates of Hospitalization Date of Hospital Admission Sep 14, 2016 at 17:17 Date of Discharge: Sep 19, 2016 Providers: Admitting Physician: Александр Redding MD Primary Care Physician: Jaimie Martines MD Attending Physician: Александр Redding MD Diagnosis at Time of Discharge Diagnosis at Time of Discharge # Acute Right intertrochanteric femoral fracture post Open reduction and internal fixation, right intertrochanteric femoral fracture, with locked intramedullary renate on 09/15/16 # Chronic a-fib with acute transient RVR - on Xarelto for anticoagulation # Acute post-op delirium, resolved. # Acute Gastroenteritis. resolved # History of alcohol use Consultations 1. Ortho Procedures XRay, CTs & MRIs Date of Service: 09/15/16 1709 PROCEDURE: X-RAY PELVIS W/LAT HIP (RT) ([id number]) IMPRESSION: Spica postsurgical change for ORIF of right hip fracture. Dictated by: Ana Pruett MD, PhD on 09/15/2016 at 18:14 Approved by: Ana Pruett MD, PhD on 09/15/2016 at 18:14 Date of Service: 09/14/162131 PROCEDURE: CT BRAIN WITHOUT CONTRAST ([id number]) IMPRESSION: No acute intracranial disease process. Dictated by: Ana Pruett MD, PhD on 09/15/2016 at 9:26 Approved by: Ana Pruett MD, PhD on 09/15/2016 at 9:26 Cardiac Echo Impression Date of Service: 09/15/16 2131 Echocardiogram Report Interpretation Summary The ejection fraction is estimated to be 60-65%. The right ventricle is mild to moderately dilated. There is a pacemaker lead in the right ventricle. Right ventricular systolic function is borderline reduced. There is moderate tricuspid regurgitation. The right ventricular systolic pressure is estimated at 35 mmHg assuming a right atrial pressure of 3 mm Hg. Given an appropriate setting these findings could be suggestive of a PE. Electronically signed by: Taran Crow on Reading Physician:09/15/2016 02:07 PM Invasive Procedures DATE OF SURGERY: 09/15/2016 PREOPERATIVE DIAGNOSIS(ES): Right intertrochanteric femoral fracture. S72.141A POSTOPERATIVE DIAGNOSIS(ES): Right intertrochanteric femoral fracture. S72.141A PROCEDURE: Open reduction and internal fixation, right intertrochanteric femoral fracture, with locked intramedullary renate, CPT code 08128. PROSTHESES UTILIZED: Synthes 12 mm diameter locked trochanteric femoral nail. SURGEON: David Hughes MD. ASSISTING: None. ANESTHESIA: Spinal. ESTIMATED BLOOD LOSS: 75 mL. DRAINS: None. COMPLICATIONS: None. SPONGE AND NEEDLE COUNT: Correct. SPECIMEN: No specimen to Pathology. COMPLICATIONS: No complications. INDICATIONS: This is an 89-year-old female who fell sustaining a displaced right intertrochanteric femoral fracture. DESCRIPTION OF PROCEDURE: Under adequate spinal anesthetic, the patient was placed on the fracture table. The right leg was placed in traction, and the left leg was also placed in a holding boot and placed in the scissor technique to allow C-arm mobility. After appropriate time-out was called, x-rays were taken, confirming good position of the fracture as it was out to length on AP and lateral views with the traction. Right hip was prepped and draped in a sterile fashion. An incision was fashioned just proximal to the greater trochanter. A guide pin was placed over the greater trochanter with a lateral trochanteric femoral entry point. It was documented in good position in the AP and lateral views. The proximal portion of the canal was opened with a reamer. Ball-tipped guide was placed down the shaft of the femur. A 12 mm diameter, short Synthes locked trochanteric femoral nail was then placed in the femoral canal. Attention was next turned to the compression screw for the femoral neck and head. The ball-tipped guide was removed from the femur. Incision was fashioned over the lateral aspect of the femur through the tensor fascia joanna. The vastus lateralis was incised. Utilizing the alignment jig, this was placed down to the lateral aspect of the femur. A guide pin was then introduced in the femoral neck and head, and documented in good position on AP and lateral views. It was then measured, and a compression screw was placed through the proximal portion of the nail. The nail was then subsequently locked, and the guide pin was removed from the femoral neck and head. Attention was next turned to the distal interlock. The alignment jig was then placed through a small incision through the lateral aspect of the femur through the tensor fascia joanna down to the bone. This was drilled, measured and a 36-mm fully threaded cortical screw was placed. The alignment jig was removed. Image intensification confirmed good position of the hardware in AP and lateral views. The whole alignment jig for the renate was also removed. Final image intensification pictures were taken. The wounds were irrigated with antibiotic solution. The deeper layers were closed proximally over the tensor fascia joanna with #1 Vicryl, 0 and 2-0 Vicryl, and skin was reapproximated with guy. The two smaller more inferior wounds were closed with interrupted sutures along the tensor fascia joanna with 0 Vicryl, subcutaneous with 2-0 Vicryl and skin reapproximated with guy. Xeroform dry sterile dressings were applied. The patient has carefully taken off the fracture table. The patient was taken to recovery room in stable condition. Sponge and needle count correct. No complications. PLAN: The patient will be partial weightbearing 50% body weight with Physical Therapy. She will require anticoagulation for DVT prophylaxis postoperatively in the hospital, as well as after she is discharged to shelter. She will need her guy removed in two weeks. May be seen back in the office in two weeks for staple removal by one of the PAs, and I will see the patient back in followup four weeks thereafter. CC: [facility] CC- Hoda Morse Jean Marie MD 09/16/16 1416 <Electronically signed by David Hughes MD> 09/21/16 5037 Report status: Signed Transcribed by: MEREDITH 09/16/16 3297 REPORT#: [id number] cc: Jaimie Martines MD; David Hughes MD; OTHER, PHYSICIAN Brief History As noted in H&P by Dr. Redding: 89-year-old female, BIB EMS,atrial fibrillation-Xarelto, non-compliance, EtOH, recurrent fall, presented after ground level fall and noted to have right hip fracture. She was responsive verbally to ER doc but in the gao she was slow to respond/difficult to redirect, proceeded to have projectile vomiting of old food and bile after RN attempting administering pill, then became more alert, able to keep attention, circumferential and had forgotten that she had a hip fracture or the fall. Per EMS, she tripped over a rug. She previously fell and broke her arm. She indicates no pain of legs.She indicated to ER staff that she felt "lousy" no change in diet. EtOH is noted to be less per ER note than prior notes. She indicates that she does not take much medications. In the ER, patient briefly had RVR 150, self resolved prior to administration of metoprolol. In the gao, banana bag was started, but w/ new crackles, it was stopped, thiamine IV instead, and lasix 30 mg total administered w.normal electrolyes Hospital Course Hip fracture, status post right femoral nail placement on September 15 --Follow-up in ortho clinic with PA for staple removal in 2 weeks and with surgeon approximately 4 weeks postoperatively afib transient RVR in ER. stable by time d/c - c/w Xarelto on d/c Delirium resolved -- tsh normal/ continue thiamine Gastroenteritis - vomiting w/ dysphagia. Resolved --supportive care, swallow evaluation, tolerating crushed pills in apple sauce --PPI Chronic issues known prior to admission, present on admission: EtOh. no evidence of withdrawal during this hospital Diet dysphagia by day of d/c lungs CTA bilat. Exam Vital Signs (Last) Date Time Temp Pulse Resp B/P Pulse Ox O2 Delivery O2 Flow Rate FiO2 09/19/16 07:56 36.4 75 16 110/60 100 Room Air 09/19/16 00:17 2.00 09/15/16 03:56 95 Test 09/14/16 14:55 09/14/16 16:31 09/14/16 22:16 09/15/16 06:14 Prothrombin Time 11.1sec (8.1-12.5) Prothromb Time International Ratio 1.04ratio Activated Partial Thromboplast Time 25.9sec (22.8-33.0) Hemoglobin A1c 6.9% (4.8-5.6) Total Bilirubin 0.4mg/dL (0.0-1.2) Aspartate Amino Transf (AST/SGOT) 19U/L (0-50) Alanine Aminotransferase (ALT/SGPT) 11U/L (0-32) Alkaline Phosphatase 63U/L (25-165) Total Protein 6.5g/dL (6.4-8.4) Albumin 3.6g/dL (3.4-5.0) Hold Matthew Top Tube Received (Received) Urine Color Yellow (YELLOW) Urine Appearance Clear (CLEAR,HAZY) Urine pH 5.0 (5.0-8.0) Urine Specific [place] 1.030 (1.003-1.035) Urine Protein Negativemg/dL (NEG,TRACE) Urine Glucose (UA) Negativemg/dL (NEGATIVE) Urine Ketones Negativemg/dL (NEGATIVE) Urine Occult Blood Trace (NEGATIVE) Urine Nitrite Negative (NEGATIVE) Urine Bilirubin Negative (NEGATIVE) Urine Urobilinogen Normalmg/dL (NORMAL) Urine Leukocyte Esterase Negative (NEGATIVE) Urine RBC 0-2/hpf (0-2) Urine WBC 0-5/hpf (0-5) Urine Epithelial Cells None/hpf (NONE-MOD) Urine Crystals None seen (NONE SEEN) Urine Bacteria None/hpf (NONE-FEW) Urine Hyaline Casts None/lpf (NONE) Urine Granular Casts None seen (NONE SEEN) Urine Waxy Casts None seen (NONE SEEN) Urine Red Blood Cell Casts None seen (NONE SEEN) Urine White Blood Cell Casts None seen (NONE SEEN) Urine Mucus None seen (None Seen) Urine Trichomonas None seen (NONE SEEN) Urine Yeast None (NONE SEEN) Urinalysis Comment None Urine Culture Reflexed Not indicated Troponin T 0.010ug/L (0.0-0.011) Pro-B-Type Natriuretic Peptide 588.8pg/mL (0-738) Phosphorus Level 5.0mg/dL (2.5-4.9) Magnesium Level 1.9mg/dL (1.6-2.6) Thyroid Stimulating Hormone (TSH) 1.950uIU/mL (0.450-4.500) Free Thyroxine Index 1.2 (1.2-4.9) Thyroxine (T4) 4.5ug/dL (4.5-12.0) Triiodothyronine (T3) Uptake 26% (24-39) Test 09/19/16 05:05 White Blood Count 5.7th/mm3 (3.8-10.1) Red Blood Count 2.80mil/mm3 (3.90-5.20) Hemoglobin 8.7g/dL (12.0-15.6) Hematocrit 26.9% (35.0-46.0) Mean Corpuscular Volume 96.1fL (81-100) Mean Corpuscular Hemoglobin 31.1pg (27.0-35.0) Mean Corpuscular Hemoglobin Concent 32.3% (32.0-37.0) Red Cell Distribution Width 12.7% (12.3-15.4) Platelet Count 213bil/L (150-400) Neutrophils (%) (Auto) 51.3% (40-74) Lymphocytes (%) (Auto) 33.7% (14-46) Monocytes (%) (Auto) 9.2% (4-12) Eosinophils (%) (Auto) 4.2% (0-5) Basophils (%) (Auto) 0.4% (0-3) Sodium Level 144mEq/L (134-144) Potassium Level 3.5mEq/L (3.5-5.2) Chloride Level 105mEq/L (97-108) Carbon Dioxide Level 29mmol/L (18-29) Blood Urea Nitrogen 11mg/dL (8-27) Creatinine 0.52mg/dL (0.57-1.00) Estimat Glomerular Filtration Rate 159mL/min (>59) Glucose Level 134mg/dL (60-99) Calcium Level 8.2mg/dL (8.5-10.1) Discharge Medications Discharge Medications ([Senna/Docusate Sodium]) 1 TABLET TABLET 1 TABLET PO BID Prescribed by: JOSÉ LUIS MACK MD Metoprolol Succinate ER (Metoprolol Succinate ER) 200 Mg Tab.er.24h 200 MG PO QPM (Reported) Rivaroxaban (Xarelto) 20 Mg Tablet 20 MG PO DAILY (Reported) As needed Flunisolide (Flunisolide) 25 Ml [place] 1-2 SPRAYS NASAL DAILY PRN PRN For Congestion (Reported) Polyethylene Glycol 3350 (Miralax) 17 Gm Powd.pack 17 GM PO DAILY PRN PRN For Constipation Prescribed by: JOSÉ LUIS MACK MD oxyCODONE-Acetaminophen 5-325 mg (oxyCODONE-Acetaminophen 5-325 mg) 1 Each Tablet 1-2 TAB PO Q4H PRN PRN For Severe Pain Prescribed by: JOSÉ LUIS MACK MD Followup Plan Disposition: SNF Follow-up plan 1. Follow-up plan: In 2 weeks at [facility] with PA for wound check and at [address] Hughes with x-ray [address] [id number] 2. Followup with primary care provider in 1-2 weeks Discharge Diet: Low fat, Low Sodium, Heart Healthy Discharge Activity: Other (per physical therapy and as noted below) Patient Instructions Weightbearin% weightbearing with walker x 1 month. Patient may need platform walker due to carpal tunnel syndrome Physical therapy for transfers, progressive ambulation, therapeutic exercise Follow-up Provider: Jaimie Martines MD Provider: David Hughes MD Time spent 35 min copies to: Jaimie Martines MD; David Hughes MD, Masoud Sep 21, 2016 17:12
== END 2016-09-19 16:40 | DRG 482 ==
LOC: SED 13:00 → OSC 17:17
PROVIDERS: ADMIT Urology; ATTEND Urology
PROC: 0QS606Z Reposition Right Upper Femur with Intramedullary Internal Fixation Device, Open Approach (ICD-10-PCS; principal; 2016-09-15 14:00)
DX: S72.141A Displaced intertrochanteric fracture of right femur, initial encounter for closed fracture (principal); I48.2 Chronic atrial fibrillation; R13.10 Dysphagia, unspecified; R41.0 Disorientation, unspecified; E87.70 Fluid overload, unspecified; K52.9 Noninfective gastroenteritis and colitis, unspecified; W01.0XXA Fall on same level from slipping, tripping and stumbling without subsequent striking against object, initial encounter; Y92.009 Unspecified place in unspecified non-institutional (private) residence as the place of occurrence of the external cause; Z79.01 Long term (current) use of anticoagulants; Z66 Do not resuscitate; Y93.01 Activity, walking, marching and hiking